=== PATIENT | male | born 1965 | race Hispanic/Latino ===

== ENCOUNTER 2018-07-15 17:20 | Inpatient (IN) | payer MEDICARE ==
[~2018-07-15] VITALS: Ht 182.9 cm; Wt 91.8 kg
[~2018-07-15 17:20] MED LIST: ALENDRONATE SOD70 MG PO; ASA81 MG PO; CALCITRIOL0.25 MCG PO; FINASTERIDE5 MG PO; FLUDROCORTISON0.1 MG PO; LOPERAMIDE2 M1 PO; MYCOPHENOLATE250 MG PO; PREDNISONE PO; Z STARLIX PO; Z.0.CARVEDILOL3.125 PO; Z.0.LISINOPRIL20 MG PO; Z.0.LOTREL 10-20 M1 PO; Z.0.PLAVIX75 MG PO; Z.0.RENVELA800 MG PO
[2018-07-15] MEDS ORDERED: SODIUM CHLORIDE 0.9% 500ML 500 ML IV ONE (18:15)
[2018-07-15 18:32] LABS: BASOPHILS % 0.2 % (0.0-1.0); HEMATOCRIT 40.3 % (38.2-49.6); HEMOGLOBIN 13.6 g/dL (14.0-18.0); LYMPHOCYTES # (AUTO) 0.5 (1.0-3.2); LYMPHOCYTES % 3.8 % (18.0-39.1); MEAN CORPUSCULAR HEMOGLOBIN 31.5 pg (28-32); MEAN CORPUSCULAR HGB CONC 33.7 g/dL (31-35); MEAN CORPUSCULAR VOLUME 93.3 fL (81-99); MONOCYTES # (AUTO) 0.9 (0.2-0.8); MONOCYTES % 7.2 % (4.4-11.3); NEUTROPHILS # (AUTO) 11.3 (2.1-6.9); NEUTROPHILS % 88.2 % (38.7-80.0); RED BLOOD COUNT 4.32 x10e6/uL (4.3-5.7); RED CELL DISTRIBUTION WIDTH 14.1 % (11.7-14.4)
[2018-07-15 18:35] LABS: PLATELET COUNT 92 x10e3/uL (140-360)
[2018-07-15 18:36] LABS: INR 1.33; PROTHROMBIN TIME 15.5 seconds (11.9-14.5)
[2018-07-15 18:37] LABS: PARTIAL THROMBOPLASTIN TIME 34.3 seconds (23.8-35.5)
[2018-07-15 18:47] LABS: BILIRUBIN,URINE NEGATIVE (NEGATIVE); CLARITY,URINE SL CLOUDY (CLEAR); COLOR,URINE YELLOW (YELLOW); KETONES,URINE NEGATIVE (NEGATIVE); LEUKOCYTE ESTERASE ,URINE TRACE (NEGATIVE); NITRITE,URINE NEGATIVE (NEGATIVE); PROTEIN,URINE DIPSTICK TRACE (NEGATIVE); URINE UROBILINOGEN 0.2 mg/dL (0.2 - 1)
[2018-07-15 18:53] LABS: ALBUMIN 3.4 g/dL (3.5-5.0); ALBUMIN/GLOBULIN RATIO 1.2 (0.8-2.0); ANION GAP 14.2 mmol/L (8-16); CALCIUM 9.8 mg/dL (8.4-10.2); CREATININE, SERUM 1.47 mg/dL (0.72-1.25); MAGNESIUM 1.2 MG/DL (1.3-2.1); POTASSIUM 4.2 mmol/L (3.5-5.1)
[2018-07-15 18:54] LABS: BACTERIA,URINE FEW /HPF
[2018-07-15 19:02] LABS: CREATINE KINASE MB 1.5 ng/mL (0-5.0)
[2018-07-15] MEDS ORDERED: CEFTRIAXONE SOD 1 GM VIAL IV ONE (19:59)
[2018-07-15] MEDS ORDERED: ACETAMINOPHEN 325 MG TAB PO ONE (23:00)
[2018-07-15] MEDS ORDERED: ZOFRAN ODT4 MG PO (23:28)
[2018-07-15] MEDS ORDERED: DOXYCYCLINE MON50 MG PO (23:28)
[2018-07-15] MEDS ORDERED: TACROLIMUS1 MG PO ×2 (23:28)
[2018-07-15] MEDS ORDERED: LANTUS 3ML100 UNITS/ SC (23:30)
[2018-07-15] MEDS ORDERED: APIDRA SOL100 UNIT/1 (23:30)
--- NOTE | 2018-07-15 23:58 | Diagnostic Imaging Report ---
EXAM: CT Abdomen and Pelvis WITHOUT contrast INDICATION: Renal stone COMPARISON: None. TECHNIQUE: Abdomen and pelvis were scanned utilizing a multidetector helical scanner from the lung base to the pubic symphysis without administration of IV contrast. Absence of intravenous contrast decreases sensitivity for detection of focal lesions and vascular pathology. Coronal and sagittal reformations were obtained. Stone protocol is performed. IV CONTRAST: None. ORAL CONTRAST: Water RADIATION DOSE: Total DLP: 593.94 mGy*cm Estimated effective dose: (DLP x 0.015 x size factor) mSv COMPLICATIONS: None FINDINGS: LINES and TUBES: None. LOWER THORAX: There is evidence of tree-in-bud nodularity predominantly involving the right lower and right middle lobe with miliary pattern. There is a left lower lobe round atelectasis associated with a pleural base low density oval masslike process measuring 9.9 x 4.4 x 8.1 cm best seen on series 3, image 31 and series 401, image 70 compatible with sequela of prior hemothorax or higher thorax. Multiple calcifications are noted peripherally. HEPATOBILIARY: No focal hepatic lesions. No biliary ductal dilation. GALLBLADDER: Cholecystectomy. SPLEEN: There is evidence of splenomegaly PANCREAS: No focal masses or ductal dilatation. ADRENALS: No adrenal nodules KIDNEYS/URETERS: No hydronephrosis. No cystic or solid mass lesions. No stones. Chronic renal atrophy compatible with medical renal disease. 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 GI TRACT: No abnormal distention, wall thickening, or evidence of bowel obstruction. Appendix is normal. PELVIC ORGANS/BLADDER: The urinary bladder is decompressed with thickened feliciano.. Correlate for urine production LYMPH NODES: No lymphadenopathy. VESSELS: There is severe atherosclerotic disease in the aorta and major arterial branches. PERITONEUM / RETROPERITONEUM: No free air or fluid. BONES: Unremarkable. SOFT TISSUES: Unremarkable. IMPRESSION: 1. No evidence of nephrolithiasis or hydronephrosis. 2. The calcifications noted in the [place] kidneys are all vascular in origin. 3. Mild splenomegaly. 4. 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 Isolation is recommended until active infection is excluded. Differential diagnosis may include atypical infections such as TB, or fungi. 5. Left lower lobe pleural base density compatible with sequela of prior empyema or hemothorax. Signed by: Dr. Eliazar Murillo M.D. on 07/15/2018 11:54 PM
[2018-07-16] VITALS (8 sets, daily range): BP systolic 81–177; BP diastolic 46–79
[2018-07-16] MEDS ORDERED: ONDANSETRON HCL INJ 2 MG/ML VIAL IV PRN (00:15)
[2018-07-16] MEDS ORDERED: DIPHENHYDRAMINE HCL INJ 50 MG/ML VIAL IV PRN (00:15)
[2018-07-16] MEDS ORDERED: VANCOMYCIN 1GM/NS 250 ML 250 ML IV SCH (00:15)
[2018-07-16] MEDS ORDERED: MORPHINE SULFATE INJ 4 MG/ML INJ IV PRN (00:15)
[2018-07-16] MEDS: SODIUM CHLORIDE 0.9% 1000ML 1,000 ML IV SCH ×2 (01:07→21:43)
[2018-07-16] MEDS: PIPER-TAZ 3.375 GM 50 ML IV SCH ×2 (01:07→06:06)
--- NOTE | 2018-07-16 01:30 | Diagnostic Imaging Report ---
EXAMINATION: CHEST SINGLE (PORTABLE) INDICATION: Fever COMPARISON: None FINDINGS: TUBES and LINES: None. LUNGS: Lungs are not well inflated. Bibasilar opacities are most likely atelectasis. There is no evidence of pneumonia or pulmonary edema. PLEURA: No pleural effusion or pneumothorax. HEART AND MEDIASTINUM: Cardiac size is mildly enlarged. The patient is status post CABG procedure. BONES AND SOFT TISSUES: No acute osseous lesion. Soft tissues are unremarkable. UPPER ABDOMEN: No free air under the diaphragm. IMPRESSION: Low lung volumes without evidence of confluent airspace disease. Signed by: Dr. Eliazar Murillo M.D. on 07/16/2018 1:26 AM
[2018-07-16] MEDS: ALBUTEROL SULF 0.083% NEB SOLN 3 ML NEB NEB SCH ×3 (06:00→19:44)
[2018-07-16] MEDS: IPRATROPIUM BROMIDE 0.02% 2.5 ML NEB NEB SCH ×3 (07:00→19:44)
[2018-07-16] MEDS ORDERED: ALENDRONATE SODIUM 70 MG TAB PO SCH (08:30)
[2018-07-16] MEDS ORDERED: NON-FORMULARY MEDICATION (Loperamide Hcl (Loperamide) 2 MG) PO SCH (08:30)
[2018-07-16] MEDS ORDERED: MYCOPHENOLATE MOFETIL 250 MG CAP PO SCH (08:30)
[2018-07-16] MEDS ORDERED: DEXTROSE 50% SYRINGE 50 ML IV PRN (08:45)
[2018-07-16] MEDS: ASPIRIN 81 MG ENTERIC COATED PO SCH (09:00)
[2018-07-16] MEDS: NIFEDIPINE CR 30 MG TAB PO SCH (09:00)
[2018-07-16] MEDS ORDERED: CARVEDILOL 12.5 MG TAB PO SCH (09:00)
[2018-07-16] MEDS: DOXYCYCLINE HYCLATE TABLET 100 MG TAB PO SCH ×2 (09:00→17:00)
[2018-07-16] MEDS ORDERED: BENAZEPRIL HCL 10 MG TAB PO SCH (09:00)
[2018-07-16] MEDS: AMLODIPINE BESYLATE 10 MG TAB PO SCH (09:00)
[2018-07-16] MEDS: CLOPIDOGREL BISULFATE 75 MG TAB PO SCH (09:00)
[2018-07-16] MEDS ORDERED: DOXYCYCLINE MONOHYDRATE 100 MG PO SCH (09:00)
[2018-07-16] MEDS ORDERED: CARVEDILOL 3.125 MG TAB PO SCH (09:00)
[2018-07-16] MEDS: CARVEDILOL 12.5 MG TAB PO SCH ×2 (09:00→17:00)
[2018-07-16] MEDS: FINASTERIDE 5 MG TAB PO SCH (09:00)
[2018-07-16] MEDS: PREDNISONE 5 MG TAB PO SCH (09:00)
[2018-07-16] MEDS: CALCITRIOL 0.25 MCG CAP PO SCH (09:00)
[2018-07-16] MEDS: FLUDROCORTISONE ACETATE 0.1 MG TAB PO SCH ×2 (09:00→17:00)
[2018-07-16] MEDS ORDERED: NON-FORMULARY MEDICATION (Amlodipine Besylate/Benazepril (Lotrel 10-20 Mg Capsule) 1 CAP) PO SCH (09:00)
[2018-07-16] MEDS ORDERED: LOPERAMIDE HCL 2 MG CAP PO PRN (09:00)
[2018-07-16] MEDS ORDERED: TACROLIMUS 1 MG CAP PO SCH ×2 (09:00→21:00)
[2018-07-16] MEDS ORDERED: CALCITRIOL 0.25 MCG CAP PO SCH (09:00)
[2018-07-16] MEDS: LISINOPRIL 20 MG TAB PO SCH (09:00)
[2018-07-16] MEDS ORDERED: PREDNISONE 5 MG PO SCH (09:00)
[2018-07-16] MEDS ORDERED: SEVELAMER CARBONATE 800 MG TAB PO SCH (09:00)
[2018-07-16] MEDS: ONDANSETRON HCL 4 MG ORAL DISINTEGRATING TAB PO SCH ×2 (09:00→17:00)
[2018-07-16] MEDS: SEVELAMER CARBONATE 800 MG TAB PO SCH ×3 (09:00→21:13)
[2018-07-16] MEDS: INSULIN REGULAR, HUMAN 100 UNIT/1 ML 3ML VIAL SQ SCH ×3 (11:30→21:00)
[2018-07-16] MEDS: NATEGLINIDE 120 MG TAB PO SCH ×2 (11:30→16:30)
[2018-07-16] MEDS ORDERED: MAGNESIUM SULFATE 2GM/50ML 50 ML IV ONE (12:15)
[2018-07-16] MEDS ORDERED: FENTANYL CITRATE/PF 100MCG/2 ML INJ ONE (14:43)
[2018-07-16] MEDS ORDERED: ROCURONIUM BROMIDE 10 MG/ML 5ML VIAL ONE (14:43)
[2018-07-16] MEDS ORDERED: SUCCINYLCHOLINE 200 MG/10 ML SYR ONE (14:43)
[2018-07-16] MEDS ORDERED: MIDAZOLAM HCL 2 MG/2 ML VIAL ONE (14:43)
[2018-07-16] MEDS ORDERED: PROPOFOL IV EMULSION 10 MG/ML 20 ML VIAL ONE (14:43)
[2018-07-16] MEDS ORDERED: LIDOCAINE HCL 2% LOCAL INJ 5 ML SDV VIAL INJ ONE (14:43)
[2018-07-16] MEDS: FAMOTIDINE 20 MG/2 ML VIAL IV SCH ×2 (14:51→17:00)
--- NOTE | 2018-07-16 15:36 | Consultation ---
DATE OF CONSULTATION: July 16, 2018 REASONS FOR CONSULTATION 1. Pneumonia. 2. UTI. 3. History of osteomyelitis of the foot. HISTORY OF PRESENT ILLNESS: This patient who is known to me from before is a 53-year-old gentleman, male, with history of diabetes mellitus, history of end-stage renal disease on hemodialysis at one point, now he is status post renal transplant. The patient apparently has been having osteomyelitis of his foot before. The patient has been on antibiotics since December. The patient comes here with urgency and frequency. The patient has been sick for the last few days. No prolonged fever or chills. The patient comes to emergency room where he was evaluated. He is on vancomycin and Zosyn. There was CT of abdomen and pelvis which showed that he does have some miliary lesions in the lungs. The patient is telling me 6 years ago, at [facility], he had some workup on his lungs for TB and that was negative. The patient was admitted for UTI but the CT was abnormal. The patient apparently had UTI back in June, was given Cipro without any improvement. He had some fever and chills back then. Patient is being admitted. PAST MEDICAL HISTORY: Diabetes mellitus, hypertension, renal disease status post transplant. SURGICAL HISTORY: CABG, left toe amputation. ALLERGIES: NKA. SOCIAL HISTORY: There is no smoking, drug abuse, alcohol use. FAMILY HISTORY: Hypertension, diabetes. REVIEW OF SYSTEMS HEENT: Negative. PULMONARY: Negative. CARDIAC: Negative. PHYSICAL EXAMINATION GENERAL: He is currently alert, oriented, does not seem to be in acute distress. VITALS: Stable. Currently afebrile. HEENT: He is normocephalic, does not appear icteric. NECK: Supple. CHEST: Clear. HEART: S1 and S2. No murmur. ABDOMEN: Soft. Positive bowel sounds. No tenderness. EXTREMITIES: No edema. LABORATORY DATA: Reviewed. Chart. IMPRESSIONS 1. Possible urinary tract infection. Obtain urine cultures. Treat with Zosyn since he failed Cipro, but will adjust for his kidney function at 2.25 q.8 hours. 2. Discontinue vancomycin. 3. History of diabetes mellitus. Continue with diet control in diabetes mellitus. 4. History of osteomyelitis. Treated. 5. Abnormal computed tomograph of the abdomen and pelvis. May be tuberculosis, doubtful. Will get a computed tomography of the chest. After that, further recommendations depending on the finding. 6. Status post renal transplant. 1. Chronic kidney disease. 2. Hypertension. Will follow. Job#: [id number]
--- NOTE | 2018-07-16 15:40 | Consultation ---
DATE OF CONSULTATION: July 16, 2018 PULMONARY CONSULTATION REASON FOR CONSULT: Abnormal CT abdomen, lower cuts showed miliary pattern, possibility of TB. HPI: Mr. Taylor is a 53-year-old male who has a history of lung transplant, presented to the emergency room with increased urinary frequency and dysuria with left flank pain, was admitted under Dr. Elam's service. Patient underwent a CT abdomen and pelvis, which showed evidence of atypical infection versus miliary infection. Patient is immunocompromised on Prograf and prednisone chronically, hence high-risk for any infection. REVIEW OF SYSTEMS GENERAL: Denies any fever, chills. HEAD: Denies any head trauma. ENT: Denies any earaches. CVS: Denies any chest pain. RESPIRATORY: Denies any shortness of breath or cough. GI: Denies any nausea or vomiting. The rest of the review of systems is negative except as in HPI. PAST MEDICAL HISTORY: Diabetes, CKD 3, peripheral arterial disease, status post kidney transplant, hypertension, diabetes. FAMILY AND SOCIAL HISTORY: He does not smoke, does not drink. PHYSICAL EXAMINATION VITAL SIGNS: Temperature 100, pulse of 120, blood pressure 115/53, T-max of 100.6. HEENT: Head atraumatic, normocephalic. Oral mucosa dry. Oropharynx clear. NECK: Supple. No JVD. CHEST: Clear to auscultation bilaterally. No wheezing. No crackles. HEART: S1, S2 audible. ABDOMEN: Soft, nontender. EXTREMITIES: No pedal edema. NEUROLOGIC: Awake and alert. No focal neurological deficit. LABORATORY DATA: White count of 12,000, hemoglobin 13.6, platelets 92. Chemistry: Sodium 136, potassium 4.2, chloride 103, BUN 33, creatinine 1.47. ASSESSMENT: Mr. Taylor is a 53-year-old male who has history of kidney transplant. Patient is on immunosuppressant medications. CT of the abdomen and pelvis was done, in which the lower cuts showed evidence of miliary pattern and TB or atypical mycobacterium infection is suspected. CURRENT PROBLEMS 1. Abnormal CT of the abdomen with lower cuts of the CT chest showing question of tuberculosis. 2. Status post kidney transplant. 3. Long-term use of immunosuppressant medications. 4. Hypertension. 5. Hyperlipidemia. PLAN: I will do a CT chest without contrast. Sputum for AFB has already been ordered. If the patient is unable to bring the phlegm, he will need a bronchoscopy and BAL. Once the CT of the chest is done, I will schedule him for bronchoscopy and BAL. Thank you for this consult. Job#: [id number] LPA
--- NOTE | 2018-07-16 16:27 | Diagnostic Imaging Report ---
EXAMINATION: CT scan of the chest without contrast. TECHNIQUE: Spiral CT images of the chest were performed from the lung apices to the level of the adrenal glands. No intravenous contrast was administered per physician's request. Coronal and sagittal reformatted images were obtained. COMPARISON: Portable chest 07/16/2018 CLINICAL HISTORY:Pneumonia, sepsis, UTI DISCUSSION: ABSENCE OF INTRAVENOUS CONTRAST DECREASES SENSITIVITY FOR DETECTION OF FOCAL LESIONS AND VASCULAR PATHOLOGY. LINES/TUBES: None. LUNGS AND AIRWAYS: Tree-in-bud opacities are noted in the anterolateral right upper lobe (series 3, image 32), right lower lobe (series 3, image 61). Atelectatic changes in the left lower lobe (series 3, image 16), with associated mild bronchiectasis (series 3, image 80), which converge on the lenticular shaped subpleural density described below. Associated posterior displacement of the left major fissure Calcified granuloma in the superior segment of the right lower lobe (series 3, image 43). No focal consolidation or pulmonary nodules. Airways are clear, without bronchial lesions. PLEURA: No pneumothorax. Approximately 10.9 x 4.7 x 9.4 cm soft tissue density lenticular shaped subpleural density in the left lower lung, with associated linear and scattered dystrophic calcifications (series 2, image 96). HEART AND MEDIASTINUM: Thyroid is unremarkable. Mild cardiomegaly. Extensive atherosclerotic calcification of the coronary arteries, thoracic aorta, aortic valve sent to lesser degree mitral annulus. Aorta is nonaneurysmal. Main pulmonary artery measures 3.0 cm. LYMPH NODES: There is no mediastinal, hilar or axillary lymphadenopathy. ABDOMEN: Limited unenhanced views of the upper abdomen show no abnormality within the visualized liver, spleen and bowel. The adrenal glands are not imaged. Extensive atherosclerotic calcification of the aortic branches BONES AND SOFT TISSUES: No aggressive lytic lesions. Multilevel degenerative disc changes in the thoracic spine. Midline sternotomy wires. IMPRESSION: 1. Tree-in-bud opacities in the anterolateral right upper lobe and right lower lobe, suggesting endobronchial spread of infection (including mycobacterial disease). No consolidation. 2. Left lower lung pleural-based density with associated atelectatic changes in the left lower lobe and mild bronchiectasis, with converging airways and vessels, are suggestive of round atelectasis and/or sequela of prior empyema or effusion. Further evaluation is limited by the lack of intravenous contrast. Signed by: Dr. Isaiah Narvaez M.D. on 07/16/2018 4:24 PM
--- NOTE | 2018-07-16 17:03 | Consultation ---
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 He is admitted with pneumonia, currently sleepy, arousable, lying supine, no apparent distress. Denies nausea, vomiting, or shortness of breath. MEDICATIONS: He has been started on vancomycin 1 gram IV q.12 per protocol, receiving normal saline 75 mL an hour, also on piperacillin-tazobactam, albuterol-Atrovent nebulizer. He is on Fosamax 70 mg p.o. daily, amlodipine 10 mg daily, aspirin 81 mg daily, Atrovent nebulizer. He is on benazepril 20 mg daily, calcitriol 0.25 mg p.o. daily, Coreg 12.5 mg p.o. b.i.d. He is on Plavix 75 mg p.o. daily, doxycycline 100 mg p.o. b.i.d. He is on fludrocortisone 0.1 mg p.o. b.i.d. He is on finasteride 5 mg p.o. daily. He is on Prinivil, 20 mg of lisinopril everyday. He is on loperamide 2 mg p.o. q.6, mycophenolate mofetil 500 mg q.12. which I am going to adjust. ALLERGIES: NO APPARENT DRUG ALLERGIES. SOCIAL HISTORY: Does not smoke or drink. FAMILY HISTORY: Significant for hypertension. Workup included chest x-ray, shows low lung volumes without evidence of confluent airspace disease. Had an abdominal CT pelvis. There is a nodularity noted in the lower thorax, pulmonary critical care is on the case. We are suspecting possible atypical infection. PHYSICAL EXAMINATION GENERAL: Patient found to be awake, alert, lying supine, no apparent distress. VITALS: Blood pressure 115/53, pulse rate 120, afebrile, and respiratory rate 20. HEAD AND NECK: Cornea clear. Oral mucosa dry. LUNGS: Scattered rhonchi. No rales. HEART: S1 and S2 audible. ABDOMEN: Soft and nontender. LOWER EXTREMITY: No edema. LABORATORY TESTS: Shows white count 12.8, hemoglobin 13.6. Sodium 136, potassium 4.2, chloride 103, bicarbonate 23, BUN 33, creatinine 1.4, magnesium level is 1.2, total bili 1.4, and total protein 6.3. IMPRESSION AND PLAN: Cadaveric renal transplant with chronic rejection, hypomagnesemia. Volume status appears stable. I have adjusted his tacrolimus and CellCept doses. I have discontinued benazepril. Continue with IV fluids. Recommend to adjust the dose of vancomycin, defer to infectious disease. I will monitor patient's kidney function, urine output, and electrolytes with you. Job#: [id number] LPA
[2018-07-16] MEDS: MYCOPHENOLATE MOFETIL 250 MG CAP PO SCH (20:44)
[2018-07-16] MEDS: TACROLIMUS 1 MG CAP PO SCH ×2 (20:44→21:00)
[2018-07-16] MEDS ORDERED: INSULIN DETEMIR 100 UNIT/ML PEN SQ SCH (21:00)
[2018-07-16] MEDS: INSULIN DETEMIR 100 UNIT/ML PEN SQ SCH (21:14)
[2018-07-16] MEDS: PIPERACILLIN/TAZO 2.25 GM 50 ML IV SCH (21:43)
[2018-07-16] MEDS ORDERED: ACETAMINOPHEN 325 MG TAB PO PRN (22:00)
[2018-07-16] MEDS: ACETAMINOPHEN 325 MG TAB PO PRN (22:17)
[2018-07-17] VITALS: BP 97/50
[2018-07-17] MEDS: IPRATROPIUM BROMIDE 0.02% 2.5 ML NEB NEB SCH ×4 (01:00→19:19)
[2018-07-17 04:00] VITALS: BP 100/49
[2018-07-17] MEDS: PIPERACILLIN/TAZO 2.25 GM 50 ML IV SCH ×3 (05:36→21:11)
[2018-07-17 05:58] LABS: BASOPHILS % 0.3 % (0.0-1.0); EOSINOPHILS # (AUTO) 0.1 (0.0-0.4); HEMATOCRIT 33.7 % (38.2-49.6); HEMOGLOBIN 11.3 g/dL (14.0-18.0); LYMPHOCYTES # (AUTO) 0.5 (1.0-3.2); LYMPHOCYTES % 8.1 % (18.0-39.1); MEAN CORPUSCULAR HGB CONC 33.5 g/dL (31-35); MEAN CORPUSCULAR VOLUME 92.3 fL (81-99); MONOCYTES # (AUTO) 0.6 (0.2-0.8); MONOCYTES % 10.6 % (4.4-11.3); NEUTROPHILS # (AUTO) 4.8 (2.1-6.9); NEUTROPHILS % 78.7 % (38.7-80.0); PLATELET COUNT 77 x10e3/uL (140-360); RED BLOOD COUNT 3.65 x10e6/uL (4.3-5.7)
[2018-07-17] MEDS: ALBUTEROL SULF 0.083% NEB SOLN 3 ML NEB NEB SCH ×3 (06:00→19:19)
[2018-07-17 06:26] LABS: ANION GAP 9.2 mmol/L (8-16); CREATININE, SERUM 1.64 mg/dL (0.72-1.25); POTASSIUM 3.2 mmol/L (3.5-5.1)
[2018-07-17 07:30] VITALS: BP 98/56
[2018-07-17] MEDS: TACROLIMUS 1 MG CAP PO SCH ×2 (07:30→21:10)
[2018-07-17] MEDS: NATEGLINIDE 120 MG TAB PO SCH ×3 (07:30→16:30)
[2018-07-17] MEDS: INSULIN REGULAR, HUMAN 100 UNIT/1 ML 3ML VIAL SQ SCH ×4 (07:30→21:11)
[2018-07-17] MEDS: MYCOPHENOLATE MOFETIL 250 MG CAP PO SCH ×2 (08:30→21:10)
[2018-07-17] MEDS: ONDANSETRON HCL 4 MG ORAL DISINTEGRATING TAB PO SCH ×2 (09:00→17:40)
[2018-07-17] MEDS: AMLODIPINE BESYLATE 10 MG TAB PO SCH (09:00)
[2018-07-17] MEDS: DOXYCYCLINE HYCLATE TABLET 100 MG TAB PO SCH ×2 (09:00→17:40)
[2018-07-17] MEDS: NIFEDIPINE CR 30 MG TAB PO SCH (09:00)
[2018-07-17] MEDS: LISINOPRIL 20 MG TAB PO SCH (09:00)
[2018-07-17] MEDS: SEVELAMER CARBONATE 800 MG TAB PO SCH ×3 (09:00→21:10)
[2018-07-17] MEDS: CARVEDILOL 12.5 MG TAB PO SCH ×2 (09:00→17:00)
[2018-07-17] MEDS: FLUDROCORTISONE ACETATE 0.1 MG TAB PO SCH ×2 (09:00→17:40)
[2018-07-17] MEDS: FAMOTIDINE 20 MG/2 ML VIAL IV SCH ×2 (09:14→17:40)
[2018-07-17] MEDS ORDERED: POTASSIUM CHLORIDE 10MEQ/100ML 100 ML IV ONE (10:00)
[2018-07-17 11:48] VITALS: BP 94/52
[2018-07-17] MEDS ORDERED: LIDOCAINE HCL 2% 30 ML TUBE ONE (12:49)
[2018-07-17] MEDS ORDERED: LIDOCAINE HCL 4% 50 ML BTL ONE (12:49)
[2018-07-17] MEDS ORDERED: EPINEPHRINE HCL INJ 1 MG/ML AMP ONE (12:49)
[2018-07-17] MEDS ORDERED: OXYMETAZOLINE HCL 0.05% NAS 1 SPRAY BTL ONE (12:49)
--- NOTE | 2018-07-17 15:37 | Operative Report ---
DATE OF PROCEDURE: July 17, 2018 PROCEDURE PERFORMED: Bronchoscopy. PREPROCEDURE DIAGNOSIS: Abnormal CT chest. POSTPROCEDURE DIAGNOSIS: Normal endobronchial airways. PROCEDURE IN DETAIL: The bronchoscope was advanced through the ET tube. Both lungs were examined to the segmental level. No endobronchial lesion was seen on either side. The right upper lobe, middle lobe and lower lobe were examined. No endobronchial lesion was seen. Left upper lobe lingula and lower lobe were examined. No endobronchial lesion was seen. BAL was done from the right middle lobe. It was sent for AFB and culture, fungus, Gram stain culture, mycoplasma and legionella. Job#: [id number]
[2018-07-17] MEDS: CLOPIDOGREL BISULFATE 75 MG TAB PO SCH (15:51)
[2018-07-17] MEDS: CALCITRIOL 0.25 MCG CAP PO SCH (15:51)
[2018-07-17] MEDS: ASPIRIN 81 MG ENTERIC COATED PO SCH (15:51)
[2018-07-17] MEDS: PREDNISONE 5 MG TAB PO SCH (15:51)
[2018-07-17] MEDS: FINASTERIDE 5 MG TAB PO SCH (15:52)
[2018-07-17 16:09] VITALS: BP 100/54
[2018-07-17] MEDS ORDERED: POTASSIUM CHLORIDE 20MEQ/100ML 200 ML IV ONE (16:45)
[2018-07-17] MEDS: SODIUM BICARBONATE 650 MG TAB PO SCH (17:40)
[2018-07-17] MEDS: ACETAMINOPHEN 325 MG TAB PO PRN (18:15)
[2018-07-17 19:47] VITALS: BP 160/74
[2018-07-17] MEDS ORDERED: SODIUM CHLORIDE 0.9% 250ML 250 ML ONE (20:39)
[2018-07-17] MEDS: CLONIDINE HCL 0.2 MG TAB PO PRN (21:10)
[2018-07-17] MEDS: INSULIN DETEMIR 100 UNIT/ML PEN SQ SCH (21:11)
[2018-07-18] VITALS (9 sets, daily range): BP systolic 129–183; BP diastolic 49–91
[2018-07-18] MEDS: IPRATROPIUM BROMIDE 0.02% 2.5 ML NEB NEB SCH ×4 (00:45→19:25)
[2018-07-18] MEDS: PIPERACILLIN/TAZO 2.25 GM 50 ML IV SCH ×5 (05:21→21:18)
--- NOTE | 2018-07-18 05:57 | Progress Note ---
DATE OF CONSULTATION: July 18, 2018 Patient had no new complaints overnight. Feels a little bit better. He is status post bronch with BAL yesterday. PHYSICAL EXAMINATION VITALS: His temperature 96.1, pulse 73, blood pressure 135/61, sats 93%. GENERAL: In no apparent distress. LUNGS: Decreased breath sounds bilaterally. CARDIOVASCULAR: Regular rate/rhythm. ABDOMEN: Good bowel sounds. Soft, nontender. EXTREMITIES: No clubbing, cyanosis. NEUROLOGIC: Nonfocal. ASSESSMENT AND PLAN 1. Pneumonia. Continue with current care. Awaiting culture data. 2. Urinary tract infection. Continue with the antibiotics per Dr. Ervin. 3. Chronic kidney disease, stage 3, status post kidney transplant. Continue current care per renal. 4. Diabetes. Continue with current medications. Will monitor. 5. Hypokalemia, replaced. Will monitor. Please see hospital chart for full details. Job#: [id number] CQ
[2018-07-18] MEDS: TACROLIMUS 1 MG CAP PO SCH ×2 (07:30→21:18)
[2018-07-18] MEDS: NATEGLINIDE 120 MG TAB PO SCH ×3 (07:30→17:27)
[2018-07-18] MEDS: INSULIN REGULAR, HUMAN 100 UNIT/1 ML 3ML VIAL SQ SCH ×4 (07:30→21:00)
[2018-07-18] MEDS: ALBUTEROL SULF 0.083% NEB SOLN 3 ML NEB NEB SCH ×3 (08:00→19:25)
[2018-07-18] MEDS: MYCOPHENOLATE MOFETIL 250 MG CAP PO SCH ×2 (08:30→21:18)
[2018-07-18] MEDS: FAMOTIDINE 20 MG/2 ML VIAL IV SCH ×2 (09:00→17:28)
[2018-07-18] MEDS: SEVELAMER CARBONATE 800 MG TAB PO SCH ×3 (09:00→21:18)
[2018-07-18] MEDS: CARVEDILOL 12.5 MG TAB PO SCH ×2 (09:00→17:00)
[2018-07-18] MEDS: DOXYCYCLINE HYCLATE TABLET 100 MG TAB PO SCH ×2 (09:00→17:28)
[2018-07-18] MEDS: NIFEDIPINE CR 30 MG TAB PO SCH (09:00)
[2018-07-18] MEDS: AMLODIPINE BESYLATE 10 MG TAB PO SCH (09:00)
[2018-07-18] MEDS: SODIUM BICARBONATE 650 MG TAB PO SCH ×2 (09:00→17:28)
[2018-07-18] MEDS: FLUDROCORTISONE ACETATE 0.1 MG TAB PO SCH ×2 (09:00→17:28)
[2018-07-18] MEDS: ONDANSETRON HCL 4 MG ORAL DISINTEGRATING TAB PO SCH ×2 (09:00→17:28)
--- NOTE | 2018-07-18 14:15 | Diagnostic Imaging Report ---
EXAM: Bilateral chest ultrasound and IR consult for drainage/biopsy INDICATION: Query left sided pleural effusion COMPARISON: CT Chest 07/16/18 TECHNIQUE: Focused ultrasound was performed of the bilateral chest to evaluate for presence of pleural effusion. FINDINGS: Focused ultrasound was performed of the bilateral chest, which demonstrated no evidence of pleural effusion. IMPRESSION: No sonographic evidence of pleural effusions bilaterally PLAN: Note is made of IR consult from referring team requesting drainage of biopsy of opacity noted in the left lower lobe on prior noncontrast CT. Given absence of pleural effusion, no drainage can be performed. Furthermore, prior CT is suggestive of an area of atelectasis / sequela of prior pleural effusion (complex pleural effusion was noted on abdominal CT report from 06/30/2010), rather than mass. Therefore, no lung biopsy was performed at this time. A contrast enhanced CT may be considered for further evaluation. Signed by: Dr. Rima Purvis MD on 07/18/2018 2:12 PM
[2018-07-18] MEDS: PREDNISONE 5 MG TAB PO SCH (17:27)
[2018-07-18] MEDS: FINASTERIDE 5 MG TAB PO SCH (17:27)
[2018-07-18] MEDS: ASPIRIN 81 MG ENTERIC COATED PO SCH (17:27)
[2018-07-18] MEDS: CLOPIDOGREL BISULFATE 75 MG TAB PO SCH (17:27)
[2018-07-18] MEDS: CALCITRIOL 0.25 MCG CAP PO SCH (17:27)
[2018-07-18] MEDS: INSULIN DETEMIR 100 UNIT/ML PEN SQ SCH (21:18)
[2018-07-18] MEDS: CLONIDINE HCL 0.2 MG TAB PO PRN (23:00)
[2018-07-19] VITALS (8 sets, daily range): BP systolic 136–191; BP diastolic 71–98
[2018-07-19] MEDS: IPRATROPIUM BROMIDE 0.02% 2.5 ML NEB NEB SCH ×4 (01:25→19:40)
[2018-07-19] MEDS: PIPERACILLIN/TAZO 2.25 GM 50 ML IV SCH ×3 (05:10→22:01)
[2018-07-19 06:20] LABS: ALANINE AMINOTRANSFERASE 16 IU/L (0-55); ALKALINE PHOSPHATASE 79 IU/L (40-150); ANION GAP 13.1 mmol/L (8-16); BLOOD UREA NITROGEN 14 mg/dL (7-26); BUN/CREATININE RATIO 12 (6-25); CALCIUM 9.9 mg/dL (8.4-10.2); CARBON DIOXIDE 22 mmol/L (22-29); CHLORIDE 107 mmol/L (98-107); CREATININE, SERUM 1.19 mg/dL (0.72-1.25); EST GLOMERULAR FILTRATION RATE > 60 ML/MIN (60-); GLUCOSE 184 mg/dL (74-118); MAGNESIUM 1.4 MG/DL (1.3-2.1); POTASSIUM 4.1 mmol/L (3.5-5.1); SODIUM 138 mmol/L (136-145)
[2018-07-19] MEDS: ALBUTEROL SULF 0.083% NEB SOLN 3 ML NEB NEB SCH ×3 (06:45→19:40)
[2018-07-19 06:49] LABS: BASOPHILS % 0.3 % (0.0-1.0); EOSINOPHILS # (AUTO) 0.1 (0.0-0.4); EOSINOPHILS % 2.3 % (0.0-6.0); HEMATOCRIT 36.9 % (38.2-49.6); HEMOGLOBIN 12.5 g/dL (14.0-18.0); LYMPHOCYTES # (AUTO) 0.4 (1.0-3.2); LYMPHOCYTES % 13.7 % (18.0-39.1); MEAN CORPUSCULAR HEMOGLOBIN 31.2 pg (28-32); MEAN CORPUSCULAR HGB CONC 33.9 g/dL (31-35); MONOCYTES # (AUTO) 0.5 (0.2-0.8); MONOCYTES % 16.4 % (4.4-11.3); PLATELET COUNT 112 x10e3/uL (140-360); RED BLOOD COUNT 4.01 x10e6/uL (4.3-5.7); RED CELL DISTRIBUTION WIDTH 13.6 % (11.7-14.4)
[2018-07-19] MEDS: INSULIN REGULAR, HUMAN 100 UNIT/1 ML 3ML VIAL SQ SCH ×4 (07:30→21:00)
[2018-07-19] MEDS: NATEGLINIDE 120 MG TAB PO SCH (07:30)
[2018-07-19] MEDS: TACROLIMUS 0.5 MG CAP PO SCH (08:30)
[2018-07-19] MEDS: MYCOPHENOLATE MOFETIL 250 MG CAP PO SCH ×2 (08:30→21:59)
[2018-07-19] MEDS: DOXYCYCLINE HYCLATE TABLET 100 MG TAB PO SCH ×2 (09:00→17:00)
[2018-07-19] MEDS: FAMOTIDINE 20 MG/2 ML VIAL IV SCH ×2 (09:00→17:00)
[2018-07-19] MEDS: NIFEDIPINE CR 30 MG TAB PO SCH (09:00)
[2018-07-19] MEDS: FINASTERIDE 5 MG TAB PO SCH (09:00)
[2018-07-19] MEDS: CARVEDILOL 12.5 MG TAB PO SCH ×2 (09:00→17:00)
[2018-07-19] MEDS: FLUDROCORTISONE ACETATE 0.1 MG TAB PO SCH ×2 (09:00→17:00)
[2018-07-19] MEDS: ONDANSETRON HCL 4 MG ORAL DISINTEGRATING TAB PO SCH ×2 (09:00→17:00)
[2018-07-19] MEDS: PREDNISONE 5 MG TAB PO SCH (09:00)
[2018-07-19] MEDS: CALCITRIOL 0.25 MCG CAP PO SCH (10:00)
[2018-07-19] MEDS: CLOPIDOGREL BISULFATE 75 MG TAB PO SCH (10:00)
[2018-07-19] MEDS: ASPIRIN 81 MG ENTERIC COATED PO SCH (10:00)
[2018-07-19] MEDS: AMLODIPINE BESYLATE 10 MG TAB PO SCH (10:00)
[2018-07-19] MEDS: SEVELAMER CARBONATE 800 MG TAB PO SCH ×3 (10:00→21:59)
[2018-07-19] MEDS: SODIUM BICARBONATE 650 MG TAB PO SCH ×2 (10:00→17:00)
[2018-07-19] MEDS: CLONIDINE HCL 0.2 MG TAB PO PRN (12:10)
[2018-07-19] MEDS: TACROLIMUS 1 MG CAP PO SCH (21:59)
[2018-07-19] MEDS: INSULIN DETEMIR 100 UNIT/ML PEN SQ SCH (22:01)
[2018-07-20] VITALS: BP 117/56
[2018-07-20] MEDS: IPRATROPIUM BROMIDE 0.02% 2.5 ML NEB NEB SCH ×4 (02:35→19:28)
[2018-07-20 04:00] VITALS: BP 144/72
[2018-07-20] MEDS: ALBUTEROL SULF 0.083% NEB SOLN 3 ML NEB NEB SCH ×4 (06:00→19:28)
[2018-07-20] MEDS: PIPERACILLIN/TAZO 2.25 GM 50 ML IV SCH ×3 (06:40→22:10)
[2018-07-20 08:00] VITALS: BP 128/60
[2018-07-20] MEDS: SEVELAMER CARBONATE 800 MG TAB PO SCH ×3 (08:04→20:11)
[2018-07-20] MEDS: ASPIRIN 81 MG ENTERIC COATED PO SCH (09:00)
[2018-07-20] MEDS: CARVEDILOL 12.5 MG TAB PO SCH ×2 (09:00→17:41)
[2018-07-20] MEDS: FLUDROCORTISONE ACETATE 0.1 MG TAB PO SCH ×2 (09:00→17:41)
[2018-07-20] MEDS: AMLODIPINE BESYLATE 10 MG TAB PO SCH (09:00)
[2018-07-20] MEDS: NIFEDIPINE CR 30 MG TAB PO SCH (09:00)
[2018-07-20] MEDS: TACROLIMUS 0.5 MG CAP PO SCH (09:02)
[2018-07-20] MEDS: INSULIN REGULAR, HUMAN 100 UNIT/1 ML 3ML VIAL SQ SCH ×4 (09:03→20:13)
[2018-07-20] MEDS: FAMOTIDINE 20 MG/2 ML VIAL IV SCH ×2 (09:03→17:39)
[2018-07-20] MEDS: MYCOPHENOLATE MOFETIL 250 MG CAP PO SCH ×2 (09:03→20:11)
[2018-07-20] MEDS: FINASTERIDE 5 MG TAB PO SCH (09:05)
[2018-07-20] MEDS: CLOPIDOGREL BISULFATE 75 MG TAB PO SCH (09:05)
[2018-07-20] MEDS: DOXYCYCLINE HYCLATE TABLET 100 MG TAB PO SCH ×2 (09:05→17:41)
[2018-07-20] MEDS: CALCITRIOL 0.25 MCG CAP PO SCH (09:05)
[2018-07-20] MEDS: ONDANSETRON HCL 4 MG ORAL DISINTEGRATING TAB PO SCH ×2 (09:05→17:41)
[2018-07-20] MEDS: SODIUM BICARBONATE 650 MG TAB PO SCH ×2 (09:05→17:41)
[2018-07-20] MEDS: PREDNISONE 5 MG TAB PO SCH (09:05)
[2018-07-20 12:00] VITALS: BP 145/70
[2018-07-20 17:01] VITALS: BP 164/88
[2018-07-20 20:00] VITALS: BP 171/80
[2018-07-20] MEDS: TACROLIMUS 1 MG CAP PO SCH (20:11)
[2018-07-20] MEDS: INSULIN DETEMIR 100 UNIT/ML PEN SQ SCH (20:12)
[2018-07-20] MEDS: CLONIDINE HCL 0.2 MG TAB PO PRN (20:18)
[2018-07-21] VITALS (8 sets, daily range): BP systolic 132–192; BP diastolic 64–100
[2018-07-21] MEDS: IPRATROPIUM BROMIDE 0.02% 2.5 ML NEB NEB SCH ×4 (00:02→19:17)
[2018-07-21] MEDS: PIPERACILLIN/TAZO 2.25 GM 50 ML IV SCH ×3 (06:13→22:00)
[2018-07-21] MEDS: ALBUTEROL SULF 0.083% NEB SOLN 3 ML NEB NEB SCH ×3 (06:41→19:17)
[2018-07-21 06:54] LABS: BASOPHILS % 0.5 % (0.0-1.0); EOSINOPHILS # (AUTO) 0.1 (0.0-0.4); EOSINOPHILS % 3.4 % (0.0-6.0); HEMATOCRIT 34.1 % (38.2-49.6); HEMOGLOBIN 11.6 g/dL (14.0-18.0); LYMPHOCYTES # (AUTO) 0.9 (1.0-3.2); LYMPHOCYTES % 22.9 % (18.0-39.1); MEAN CORPUSCULAR HEMOGLOBIN 31.3 pg (28-32); MEAN CORPUSCULAR VOLUME 91.9 fL (81-99); MONOCYTES # (AUTO) 0.5 (0.2-0.8); MONOCYTES % 14.1 % (4.4-11.3); NEUTROPHILS # (AUTO) 2.3 (2.1-6.9); NEUTROPHILS % 58.6 % (38.7-80.0); PLATELET COUNT 115 x10e3/uL (140-360); RED BLOOD COUNT 3.71 x10e6/uL (4.3-5.7); RED CELL DISTRIBUTION WIDTH 13.3 % (11.7-14.4)
[2018-07-21 07:11] LABS: ALANINE AMINOTRANSFERASE 14 IU/L (0-55); ALBUMIN 2.8 g/dL (3.5-5.0); ALBUMIN/GLOBULIN RATIO 1.1 (0.8-2.0); ALKALINE PHOSPHATASE 62 IU/L (40-150); ANION GAP 12.7 mmol/L (8-16); BLOOD UREA NITROGEN 18 mg/dL (7-26); BUN/CREATININE RATIO 17 (6-25); CALCIUM 9.5 mg/dL (8.4-10.2); CARBON DIOXIDE 24 mmol/L (22-29); CHLORIDE 101 mmol/L (98-107); CREATININE, SERUM 1.07 mg/dL (0.72-1.25); EST GLOMERULAR FILTRATION RATE > 60 ML/MIN (60-); GLUCOSE 228 mg/dL (74-118); POTASSIUM 3.7 mmol/L (3.5-5.1); SODIUM 134 mmol/L (136-145)
[2018-07-21] MEDS: TACROLIMUS 0.5 MG CAP PO SCH (08:05)
[2018-07-21] MEDS: INSULIN REGULAR, HUMAN 100 UNIT/1 ML 3ML VIAL SQ SCH ×4 (08:05→21:00)
[2018-07-21] MEDS: CARVEDILOL 12.5 MG TAB PO SCH ×2 (08:06→17:10)
[2018-07-21] MEDS: ASPIRIN 81 MG ENTERIC COATED PO SCH (08:06)
[2018-07-21] MEDS: MYCOPHENOLATE MOFETIL 250 MG CAP PO SCH ×2 (08:06→22:00)
[2018-07-21] MEDS: FAMOTIDINE 20 MG/2 ML VIAL IV SCH ×2 (08:06→17:10)
[2018-07-21] MEDS: NIFEDIPINE CR 30 MG TAB PO SCH (08:10)
[2018-07-21] MEDS: AMLODIPINE BESYLATE 10 MG TAB PO SCH (08:10)
[2018-07-21] MEDS: CLOPIDOGREL BISULFATE 75 MG TAB PO SCH (08:10)
[2018-07-21] MEDS: FLUDROCORTISONE ACETATE 0.1 MG TAB PO SCH ×2 (08:10→17:10)
[2018-07-21] MEDS: PREDNISONE 5 MG TAB PO SCH (08:10)
[2018-07-21] MEDS: FINASTERIDE 5 MG TAB PO SCH (08:11)
[2018-07-21] MEDS: SEVELAMER CARBONATE 800 MG TAB PO SCH ×3 (08:11→21:00)
[2018-07-21] MEDS: DOXYCYCLINE HYCLATE TABLET 100 MG TAB PO SCH ×2 (08:11→17:10)
[2018-07-21] MEDS: SODIUM BICARBONATE 650 MG TAB PO SCH ×2 (08:11→17:10)
[2018-07-21] MEDS: CALCITRIOL 0.25 MCG CAP PO SCH (08:11)
[2018-07-21] MEDS: ONDANSETRON HCL 4 MG ORAL DISINTEGRATING TAB PO SCH ×2 (08:11→17:10)
[2018-07-21] MEDS ORDERED: MECLIZINE HCL 12.5 MG TAB PO PRN (11:30)
[2018-07-21] MEDS: TACROLIMUS 1 MG CAP PO SCH (22:00)
[2018-07-21] MEDS: INSULIN DETEMIR 100 UNIT/ML PEN SQ SCH (22:14)
[2018-07-22] VITALS (7 sets, daily range): BP systolic 137–168; BP diastolic 65–81
[2018-07-22] MEDS: IPRATROPIUM BROMIDE 0.02% 2.5 ML NEB NEB SCH ×4 (01:22→19:20)
[2018-07-22] MEDS ORDERED: SODIUM CHLORIDE 0.9% 250ML 250 ML ONE (06:08)
[2018-07-22] MEDS: PIPERACILLIN/TAZO 2.25 GM 50 ML IV SCH ×3 (07:00→22:38)
[2018-07-22] MEDS: ALBUTEROL SULF 0.083% NEB SOLN 3 ML NEB NEB SCH ×3 (07:29→19:20)
[2018-07-22] MEDS: INSULIN REGULAR, HUMAN 100 UNIT/1 ML 3ML VIAL SQ SCH ×4 (07:30→21:00)
[2018-07-22] MEDS: TACROLIMUS 0.5 MG CAP PO SCH (07:58)
[2018-07-22] MEDS: MYCOPHENOLATE MOFETIL 250 MG CAP PO SCH ×2 (07:58→22:37)
[2018-07-22] MEDS ORDERED: ALENDRONATE SODIUM 70 MG TAB PO SCH (08:48)
[2018-07-22] MEDS: AMLODIPINE BESYLATE 10 MG TAB PO SCH (09:00)
[2018-07-22] MEDS: ASPIRIN 81 MG ENTERIC COATED PO SCH (09:26)
[2018-07-22] MEDS: CARVEDILOL 12.5 MG TAB PO SCH ×2 (09:26→17:06)
[2018-07-22] MEDS: FAMOTIDINE 20 MG/2 ML VIAL IV SCH ×2 (09:26→17:05)
[2018-07-22] MEDS: CLOPIDOGREL BISULFATE 75 MG TAB PO SCH (09:27)
[2018-07-22] MEDS: CALCITRIOL 0.25 MCG CAP PO SCH (09:27)
[2018-07-22] MEDS: ONDANSETRON HCL 4 MG ORAL DISINTEGRATING TAB PO SCH ×2 (09:27→17:06)
[2018-07-22] MEDS: SODIUM BICARBONATE 650 MG TAB PO SCH ×2 (09:27→17:06)
[2018-07-22] MEDS: FINASTERIDE 5 MG TAB PO SCH (09:27)
[2018-07-22] MEDS: NIFEDIPINE CR 30 MG TAB PO SCH (09:27)
[2018-07-22] MEDS: SEVELAMER CARBONATE 800 MG TAB PO SCH ×3 (09:27→22:37)
[2018-07-22] MEDS: FLUDROCORTISONE ACETATE 0.1 MG TAB PO SCH ×2 (09:27→17:06)
[2018-07-22] MEDS: DOXYCYCLINE HYCLATE TABLET 100 MG TAB PO SCH ×2 (09:27→17:06)
[2018-07-22] MEDS: PREDNISONE 5 MG TAB PO SCH (09:27)
[2018-07-22] MEDS ORDERED: FUROSEMIDE INJ 10 MG/ML 2 ML VIAL IV NR (19:45)
[2018-07-22] MEDS: TACROLIMUS 1 MG CAP PO SCH (22:37)
[2018-07-23] VITALS (7 sets, daily range): BP systolic 130–178; BP diastolic 64–87
[2018-07-23] MEDS ORDERED: FUROSEMIDE INJ 10 MG/ML 2 ML VIAL IV ONE (00:15)
[2018-07-23] MEDS: INSULIN DETEMIR 100 UNIT/ML PEN SQ SCH ×2 (00:19→21:00)
[2018-07-23] MEDS: IPRATROPIUM BROMIDE 0.02% 2.5 ML NEB NEB SCH ×4 (01:10→19:20)
[2018-07-23] MEDS: PIPERACILLIN/TAZO 2.25 GM 50 ML IV SCH ×3 (05:47→21:30)
[2018-07-23] MEDS: ALBUTEROL SULF 0.083% NEB SOLN 3 ML NEB NEB SCH ×3 (06:00→19:20)
[2018-07-23] MEDS: INSULIN REGULAR, HUMAN 100 UNIT/1 ML 3ML VIAL SQ SCH ×4 (07:30→21:00)
[2018-07-23] MEDS: TACROLIMUS 0.5 MG CAP PO SCH (07:30)
[2018-07-23] MEDS: AMLODIPINE BESYLATE 10 MG TAB PO SCH (09:00)
[2018-07-23] MEDS: CARVEDILOL 12.5 MG TAB PO SCH ×2 (09:00→17:59)
[2018-07-23] MEDS: FLUDROCORTISONE ACETATE 0.1 MG TAB PO SCH ×2 (09:46→17:59)
[2018-07-23] MEDS: FAMOTIDINE 20 MG/2 ML VIAL IV SCH ×2 (09:46→17:59)
[2018-07-23] MEDS: ASPIRIN 81 MG ENTERIC COATED PO SCH (09:46)
[2018-07-23] MEDS: MYCOPHENOLATE MOFETIL 250 MG CAP PO SCH ×2 (09:46→20:30)
[2018-07-23] MEDS: NIFEDIPINE CR 30 MG TAB PO SCH (09:47)
[2018-07-23] MEDS: CALCITRIOL 0.25 MCG CAP PO SCH (09:47)
[2018-07-23] MEDS: SEVELAMER CARBONATE 800 MG TAB PO SCH ×3 (09:47→21:00)
[2018-07-23] MEDS: SODIUM BICARBONATE 650 MG TAB PO SCH ×2 (09:47→17:59)
[2018-07-23] MEDS: ONDANSETRON HCL 4 MG ORAL DISINTEGRATING TAB PO SCH ×2 (09:47→17:59)
[2018-07-23] MEDS: FINASTERIDE 5 MG TAB PO SCH (09:47)
[2018-07-23] MEDS: CLOPIDOGREL BISULFATE 75 MG TAB PO SCH (09:50)
--- NOTE | 2018-07-23 12:18 | Diagnostic Imaging Report ---
PROCEDURE: Frontal and lateral views of the chest. COMPARISON: Chest radiograph 07/16/18. INDICATIONS: PNEUMONIA FINDINGS: Lines/tubes: None. Lungs: Low lung volumes, with likely mild pulmonary interstitial edema. Left retrocardiac opacity is present. Patchy right basilar opacity, likely atelectasis. Pleura: There is no pleural effusion or pneumothorax. Heart and mediastinum: The cardiomediastinal silhouette is unchanged. Status post CABG. Bones: No acute bony abnormality. IMPRESSION: Left retrocardiac opacity may represent atelectasis. Superimposed pneumonia is possible in the appropriate clinical setting. Low lung volumes, with likely mild pulmonary interstitial edema. Status post CABG. Dictated by: MARIAM PAN M.D. on 07/22/2018 at 10:50 Electronically approved by: MARIAM PAN M.D. on 07/22/2018 at 10:50
[2018-07-23] MEDS: TACROLIMUS 1 MG CAP PO SCH (21:00)
[2018-07-23] MEDS: ACETAMINOPHEN 325 MG TAB PO PRN (23:58)
[2018-07-24] VITALS (7 sets, daily range): BP systolic 121–175; BP diastolic 64–83
[2018-07-24] MEDS: IPRATROPIUM BROMIDE 0.02% 2.5 ML NEB NEB SCH ×4 (01:07→20:00)
[2018-07-24 05:24] LABS: BASOPHILS % 0.4 % (0.0-1.0); EOSINOPHILS # (AUTO) 0.1 (0.0-0.4); EOSINOPHILS % 2.8 % (0.0-6.0); HEMATOCRIT 33.6 % (38.2-49.6); HEMOGLOBIN 11.3 g/dL (14.0-18.0); LYMPHOCYTES # (AUTO) 1.1 (1.0-3.2); MEAN CORPUSCULAR HGB CONC 33.6 g/dL (31-35); MEAN CORPUSCULAR VOLUME 92.3 fL (81-99); MONOCYTES # (AUTO) 0.6 (0.2-0.8); MONOCYTES % 12.7 % (4.4-11.3); NEUTROPHILS # (AUTO) 2.8 (2.1-6.9); NEUTROPHILS % 60.7 % (38.7-80.0); PLATELET COUNT 140 x10e3/uL (140-360); RED BLOOD COUNT 3.64 x10e6/uL (4.3-5.7); RED CELL DISTRIBUTION WIDTH 13.3 % (11.7-14.4)
[2018-07-24 05:48] LABS: ALANINE AMINOTRANSFERASE 13 IU/L (0-55); ALBUMIN 2.9 g/dL (3.5-5.0); ALBUMIN/GLOBULIN RATIO 1.2 (0.8-2.0); ALKALINE PHOSPHATASE 63 IU/L (40-150); ANION GAP 12.5 mmol/L (8-16); BLOOD UREA NITROGEN 20 mg/dL (7-26); BUN/CREATININE RATIO 18 (6-25); CALCIUM 9.4 mg/dL (8.4-10.2); CARBON DIOXIDE 30 mmol/L (22-29); CHLORIDE 102 mmol/L (98-107); CREATININE, SERUM 1.12 mg/dL (0.72-1.25); EST GLOMERULAR FILTRATION RATE > 60 ML/MIN (60-); GLUCOSE 233 mg/dL (74-118); POTASSIUM 3.5 mmol/L (3.5-5.1); SODIUM 141 mmol/L (136-145)
[2018-07-24] MEDS: ALBUTEROL SULF 0.083% NEB SOLN 3 ML NEB NEB SCH ×3 (06:00→18:00)
[2018-07-24] MEDS: AMLODIPINE BESYLATE 10 MG TAB PO SCH ×2 (09:00→12:42)
[2018-07-24] MEDS: CARVEDILOL 12.5 MG TAB PO SCH ×2 (09:00→17:00)
[2018-07-24] MEDS: ASPIRIN 81 MG ENTERIC COATED PO SCH (09:00)
[2018-07-24] MEDS: TACROLIMUS 0.5 MG CAP PO SCH (09:12)
[2018-07-24] MEDS: INSULIN REGULAR, HUMAN 100 UNIT/1 ML 3ML VIAL SQ SCH ×4 (09:13→20:23)
[2018-07-24] MEDS: FLUDROCORTISONE ACETATE 0.1 MG TAB PO SCH ×2 (09:13→17:19)
[2018-07-24] MEDS: CLOPIDOGREL BISULFATE 75 MG TAB PO SCH (09:13)
[2018-07-24] MEDS: MYCOPHENOLATE MOFETIL 250 MG CAP PO SCH ×2 (09:13→20:23)
[2018-07-24] MEDS: NIFEDIPINE CR 30 MG TAB PO SCH (09:13)
[2018-07-24] MEDS: FINASTERIDE 5 MG TAB PO SCH (09:13)
[2018-07-24] MEDS: FAMOTIDINE 20 MG/2 ML VIAL IV SCH ×2 (09:13→17:13)
[2018-07-24] MEDS: SEVELAMER CARBONATE 800 MG TAB PO SCH ×3 (09:14→20:23)
[2018-07-24] MEDS: SODIUM BICARBONATE 650 MG TAB PO SCH ×2 (09:14→17:13)
[2018-07-24] MEDS: CALCITRIOL 0.25 MCG CAP PO SCH (09:14)
[2018-07-24] MEDS: ONDANSETRON HCL 4 MG ORAL DISINTEGRATING TAB PO SCH ×2 (09:14→17:13)
[2018-07-24] MEDS: PIPERACILLIN/TAZO 2.25 GM 50 ML IV SCH ×2 (15:38→22:00)
[2018-07-24] MEDS: TACROLIMUS 1 MG CAP PO SCH (20:23)
[2018-07-24] MEDS: INSULIN DETEMIR 100 UNIT/ML PEN SQ SCH (20:24)
[2018-07-25] VITALS: BP 142/79
[2018-07-25] MEDS: IPRATROPIUM BROMIDE 0.02% 2.5 ML NEB NEB SCH ×3 (01:00→13:10)
[2018-07-25 04:00] VITALS: BP 153/85
[2018-07-25] MEDS: PIPERACILLIN/TAZO 2.25 GM 50 ML IV SCH (06:00)
[2018-07-25] MEDS: ALBUTEROL SULF 0.083% NEB SOLN 3 ML NEB NEB SCH ×2 (06:00→13:10)
[2018-07-25 08:00] VITALS: BP 149/73
[2018-07-25 08:33] VITALS: BP 149/73
[2018-07-25] MEDS: ASPIRIN 81 MG ENTERIC COATED PO SCH (09:00)
[2018-07-25] MEDS: MYCOPHENOLATE MOFETIL 250 MG CAP PO SCH (09:12)
[2018-07-25] MEDS: INSULIN REGULAR, HUMAN 100 UNIT/1 ML 3ML VIAL SQ SCH (09:12)
[2018-07-25] MEDS: FAMOTIDINE 20 MG/2 ML VIAL IV SCH (09:12)
[2018-07-25] MEDS: TACROLIMUS 0.5 MG CAP PO SCH (09:12)
[2018-07-25] MEDS: FINASTERIDE 5 MG TAB PO SCH (09:13)
[2018-07-25] MEDS: CALCITRIOL 0.25 MCG CAP PO SCH (09:13)
[2018-07-25] MEDS: SODIUM BICARBONATE 650 MG TAB PO SCH (09:13)
[2018-07-25] MEDS: NIFEDIPINE CR 30 MG TAB PO SCH (09:13)
[2018-07-25] MEDS: SEVELAMER CARBONATE 800 MG TAB PO SCH (09:13)
[2018-07-25] MEDS: FLUDROCORTISONE ACETATE 0.1 MG TAB PO SCH (09:13)
[2018-07-25] MEDS: ONDANSETRON HCL 4 MG ORAL DISINTEGRATING TAB PO SCH (09:13)
[2018-07-25] MEDS: CLOPIDOGREL BISULFATE 75 MG TAB PO SCH (09:13)
[2018-07-25 12:00] VITALS: BP 170/83
[2018-07-25] MEDS: ACETAMINOPHEN 325 MG TAB PO PRN (14:28)
[2018-07-25 16:00] VITALS: BP 136/68
[2018-07-25] MEDS ORDERED: CIPRO500 MG PO (16:06)
--- OUTSIDE RECORDS SUMMARY | 2018-08-08 07:07 | XMS REPORT | Clinical Summary ---
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 Disp. Refills Start End Date Status Date tacrolimus (PROGRAF) 1 MG Take 1 capsule (1 mg 60 capsule 11 06/06/20 Active capsuleIndications: total) by mouth 2 (two) 17 Transplanted kidney times a day. mycophenolate (CELLCEPT) Take 2 tablets (1,000 mg 120 tablet 11 09/26/20 Active 500 mg tablet total) by mouth 2 (two) 17 18 times a day. aspirin (ECOTRIN) 81 MG Take 81 mg by mouth Active enteric coated tablet daily. insulin GLARGINE (LANTUS) Inject 20 Units under the Active 100 unit/mL injection skin daily. (vial) insulin glulisine Inject under the skin 3 Active (APIDRA) 100 unit/mL (three) times a day injection before meals. metoprolol succinate XL Take 0.5 tablets (12.5 mg 30 tablet 2 Active (TOPROL-XL) 25 mg 24 hr total) by mouth daily. 18 tablet tamsulosin (FLOMAX) 0.4 Take 1 capsule (0.4 mg 30 capsule 11 07/11/20 12/07/19 Discontin mg capsule,extended total) by mouth daily. 17 18 ued release 24hr tacrolimus (PROGRAF) 0.5 Take 1 capsule (0.5 mg 30 capsule 11 12/07/19 Discontin MG capsuleIndications: total) by mouth every 17 18 ued Transplanted kidney morning. mycophenolate (CELLCEPT) Take 2 tablets (1,000 mg 120 tablet 2 09/26/20 Discontin 500 mg tablet total) by mouth 2 (two) 17 17 ued times a day. predniSONE (DELTASONE) 5 Take 1 tablet (5 mg 07/11/20 07/31/20 Discontin mg tablet total) by mouth daily. 17 17 ued metoprolol succinate XL Take 1 tablet (25 mg 30 tablet 11 07/11/20 12/07/19 Discontin (TOPROL-XL) 25 mg 24 hr total) by mouth daily. 17 18 ued tablet nitrofurantoin, Take 1 capsule (100 mg 20 capsule 0 07/12/20 macrocrystal-monohydrate, total) by mouth 2 (two) 17 17 (MACROBID) 100 MG times a day for 10 days. capsuleIndications: Urinary tract infection, site not specified predniSONE (DELTASONE) 5 Take 1 tablet (5 mg 30 tablet 07/31/20 07/31/20 mg tablet total) by mouth daily. 17 18 levoFLOXacin (LEVAQUIN) Take 500 mg by mouth 12/13/19 Discontin 500 MG tablet daily. 18 ued metoprolol succinate XL Take 25 mg by mouth daily 12/13/19 Discontin (TOPROL-XL) 50 mg 24 hr as needed. Patient said 18 ued tablet he only takes 1/2 tablet of 50mg PRN when BP is high. He gets dizzy when he takes it daily. amoxicillin-pot Take 1 tablet by mouth 2 14 tablet 0 12/13/19 Discontin clavulanate (AUGMENTIN) (two) times a day for 7 18 18 ued 875-125 mg per tablet days. acetaminophen (TYLENOL) Take 1 tablet (500 mg 12/13/19 01/13/20 500 MG tablet total) by mouth every 6 18 18 (six) hours as needed for mild pain or moderate pain for up to 30 days. amLODIPine (NORVASC) 5 mg Take 1 tablet (5 mg 15 tablet 0 12/14/19 12/13/19 Discontin tablet total) by mouth daily for 18 18 ued 15 days. amLODIPine (NORVASC) 5 mg Take 1 tablet (5 mg 15 tablet 0 12/14/19 12/13/19 Discontin tablet total) by mouth daily. 18 18 ued metoprolol succinate XL Take 0.5 tablets (25 mg 12/13/19 12/13/19 Discontin (TOPROL-XL) 50 mg 24 hr total) by mouth daily as 18 18 ued tablet needed (high blood pressure) for up to 30 days. amLODIPine (NORVASC) 5 mg Take 1 tablet (5 mg 30 tablet 0 12/14/19 01/14/20 tablet total) by mouth daily for 18 18 30 days. amoxicillin-pot Take 1 tablet by mouth 2 28 tablet 0 12/21/19 clavulanate (AUGMENTIN) (two) times a day for 14 18 18 875-125 mg per tablet days. 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; Encounter for therapeutic drug monitoring; Kidney replaced by transplant; 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; Mixed hyperlipidemia; Proteinuria, unspecified type; Tertiary hyperparathyroidism; Vitamin D deficiency; Urinary tract infection without hematuria, site unspecified 01/16/2018 Telephone Transplant Ger Garcia Advice Only 12/21/2017 Documentation Infectious Diseases Samara Valle RN 12/21/2017 Orders Only Infectious Diseases Samara Valle RN 12/11/2017 Procedure Pass Transplant 12/06/2017 Hospital Transplant Eliud Lobo, Skin ulcer of right heel - Encounter DO with fat layer exposed 12/13/2017 Marie Arvizu MD (Primary Dx); Cellulitis of right foot; Kidney transplant recipient; Immunosuppressed status; Hypotension, unspecified hypotension type 09/26/2017 Refill Transplant Jayne Rangel RN Med Refill 09/25/2017 Telephone Transplant Joyce Munguia MA Medication refill 08/13/2017 Telephone Transplant Jayne Rangel RN Lab Results Follow Up 08/09/2017 Telephone Transplant Ger Garcia Advice Only 08/03/2017 Telephone Transplant Jayne Rangel, studio potter Follow Up 08/01/2017 Telephone Transplant Jayne Rangel RN Prednisone Script 08/01/2017 Telephone Transplant AngeliqueildefonsoLora MA Rx Issue 07/31/2017 Refill Transplant Jayne Rangel RN Med Refill 07/31/2017 Telephone Transplant Melvina Lee MA Med Refill 07/26/2017 Telephone Transplant Jayne Rangel RN txp coord change 07/18/2017 Telephone Transplant Melvina Lee MA Lab Results after 07/15/2017 Social History Tobacco Use Types Packs/Day Years Used Date Never Smoker Smokeless Tobacco: Never Used Alcohol Use Drinks/Week oz/Week Comments No "Drink socially before [place] drinking more than 10 years ago" Sex Assigned at Date Recorded Not on file Last Filed Vital Signs Vital Sign Reading Time Taken Blood Pressure 136/63 12/13/2017 3:27 PM [employer]END[employer] Pulse 81 12/13/2017 3:27 PM [employer] Temperature 35.6 C (96.1 F) 12/13/2017 3:27 PM [employer]ENDANT Respiratory Rate 17 12/13/2017 3:27 PM [employer] Oxygen Saturation 99% 12/13/2017 3:27 PM [employer]END[employer] Inhaled Oxygen - - Concentration Weight 99.6 kg (219 lb 9 oz) 12/11/2017 6:17 AM [employer]END[employer] Height 182.9 cm (6') 12/07/2017 12:53 AM [employer]END[employer] Body Mass Index 29.78 12/11/2017 6:17 AM [employer] ATTENDANT Plan of Treatment Health Maintenance Due Date Last Done Comments DIABETIC FOOT EXAM 1975 DIABETIC RETINAL EYE EXAM 1975 COLON CANCER SCREENING 2015 SHINGRIX VACCINE (#1) 2015 INFLUENZA VACCINE 06/05/2018 Procedures Procedure Name Priority Date/Time Associated Diagnosis Comments POC GLUCOSE Routine 12/13/2017 Results for this 1:35 PM [employer]END[employer] procedure are in the results section. POC GLUCOSE Routine 12/13/2017 Results for this 7:33 AM [employer]END[employer] procedure are in the results section. ZZESTIMATED GFR Routine 12/13/2017 Results for this 5:20 AM [employer] ATTEND[employer] procedure are in the results section. PHOSPHORUS LEVEL Routine 12/13/2017 Results for this 5:20 AM [employer]END[employer] procedure are in the results section. MAGNESIUM LEVEL Routine 12/13/2017 Results for this 5:20 AM [employer]END[employer] procedure are in the results section. FK506 LEVEL Routine 12/13/2017 Results for this 5:20 AM [employer] ATTENDANT procedure are in the results section. HC COMPLETE BLD COUNT Routine 12/13/2017 Results for this W/AUTO DIFF 5:20 AM [employer]ENDANT procedure are in the results section. BASIC METABOLIC PANEL Routine 12/13/2017 Results for this 5:20 AM [employer] ATTEND[employer] procedure are in the results section. POC GLUCOSE Routine 12/12/2017 Results for this 9:22 PM [employer]END[employer] procedure are in the results section. POC GLUCOSE Routine 12/12/2017 Results for this 5:27 PM [employer] ATTEND[employer] procedure are in the results section. POC GLUCOSE Routine 12/12/2017 Results for this 11:59 AM [employer] ATTENDANT procedure are in the results section. POC GLUCOSE Routine 12/12/2017 Results for this 8:12 AM [employer] ATTENDANT procedure are in the results section. ZZESTIMATED GFR Routine 12/12/2017 Results for this 4:55 AM [employer] ATTEND[employer] procedure are in the results section. PHOSPHORUS LEVEL Routine 12/12/2017 Results for this 4:55 AM [employer] ATTEND[employer] procedure are in the results section. MAGNESIUM LEVEL Routine 12/12/2017 Results for this 4:55 AM [employer] ATTEND[employer] procedure are in the results section. FK506 LEVEL Routine 12/12/2017 Results for this 4:55 AM [employer] ATTENDANT procedure are in the results section. CBC WITH PLATELET AND Routine 12/12/2017 Results for this DIFFERENTIAL 4:55 AM [employer]END[employer] procedure are in the results section. BASIC METABOLIC PANEL Routine 12/12/2017 Results for this 4:55 AM [employer] ATTEND[employer] procedure are in the results section. POC GLUCOSE Routine 12/11/2017 Results for this 10:53 PM [employer] ATTENDANT procedure are in the results section. POC GLUCOSE Routine 12/11/2017 Results for this 6:37 PM [employer] ATTENDANT procedure are in the results section. POC GLUCOSE Routine 12/11/2017 Results for this 2:54 PM [employer] ATTENDANT procedure are in the results section. MRI LOWER EXTREMITY JOINT Routine 12/11/2017 Results for this WO CONTRAST RIGHT 2:32 PM [employer]END[employer] procedure are in the results section. POC GLUCOSE Routine 12/11/2017 Results for this 9:39 AM [employer] ATTENDANT procedure are in the results section. ZZESTIMATED GFR Routine 12/11/2017 Results for this 5:55 AM [employer] ATTENDANT procedure are in the results section. BASIC METABOLIC PANEL Routine 12/11/2017 Results for this 5:55 AM [employer] ATTENDANT procedure are in the results section. FK506 LEVEL Routine 12/11/2017 Results for this 5:55 AM [employer] ATTEND[employer] procedure are in the results section. HC COMPLETE BLD COUNT Routine 12/11/2017 Results for this W/AUTO DIFF 5:55 AM [employer]END[employer] procedure are in the results section. PROINSULIN LEVEL Routine 12/11/2017 Results for this 5:55 AM [employer]END[employer] procedure are in the results section. C-PEPTIDE Routine 12/11/2017 Results for this 5:55 AM [employer]END[employer] procedure are in the results section. ZINC TRANSPORTER 8 Routine 12/11/2017 Results for this ANTIBODY 5:55 AM [employer]END[employer] procedure are in the results section. ISLET CELL AB, IGG Routine 12/11/2017 Results for this 5:55 AM [employer] procedure are in the results section. GAD65 AB ASSAY, S Routine 12/11/2017 Results for this 5:55 AM [employer] procedure are in the results section. POC GLUCOSE Routine 12/10/2017 Results for this 11:53 PM [employer] ATTENDANT procedure are in the results section. POC GLUCOSE Routine 12/10/2017 Results for this 5:52 PM [employer] ATTENDANT procedure are in the results section. POC GLUCOSE Routine 12/10/2017 Results for this 12:38 PM [employer] ATTENDANT procedure are in the results section. ECHOCARDIOGRAM 2D Routine 12/10/2017 Results for this COMPLETE W MMODE SPECTRAL 11:00 AM [employer] VA[employer] ATTENDANT procedure are in the COLOR DOPPLER ([id number]) results section. POC GLUCOSE Routine 12/10/2017 Results for this 9:20 AM [employer] ATTENDANT procedure are in the results section. POC GLUCOSE Routine 12/10/2017 Results for this 8:04 AM [employer] VA[employer] ATTENDANT procedure are in the results section. ZZESTIMATED GFR Routine 12/10/2017 Results for this 5:55 AM [employer] ATTENDANT procedure are in the results section. FK506 LEVEL Routine 12/10/2017 Results for this 5:55 AM [employer] ATTENDANT procedure are in the results section. COMPREHENSIVE METABOLIC Routine 12/10/2017 Results for this PANEL 5:55 AM [employer] ATTEND[employer] procedure are in the results section. HC COMPLETE BLD COUNT Routine 12/10/2017 Results for this W/AUTO DIFF 5:55 AM [employer] ATTENDANT procedure are in the results section. PREALBUMIN LEVEL Routine 12/10/2017 Results for this 5:55 AM [employer] ATTEND[employer] procedure are in the results section. POC GLUCOSE Routine 12/09/2017 Results for this 11:18 PM [employer] ATTENDANT procedure are in the results section. POC GLUCOSE Routine 12/09/2017 Results for this 6:16 PM [employer] ATTENDANT procedure are in the results section. POC GLUCOSE Routine 12/09/2017 Results for this 1:13 PM [employer] ATTENDANT procedure are in the results section. POC GLUCOSE Routine 12/09/2017 Results for this 8:37 AM [employer] ATTENDANT procedure are in the results section. ZZESTIMATED GFR Routine 12/09/2017 Results for this 5:00 AM [employer] ATTENDANT procedure are in the results section. HC COMPLETE BLD COUNT Routine 12/09/2017 Results for this W/AUTO DIFF 5:00 AM [employer] ATTENDANT procedure are in the results section. COMPREHENSIVE METABOLIC Routine 12/09/2017 Results for this PANEL 5:00 AM [employer] ATTENDANT procedure are in the results section. POC GLUCOSE Routine 12/08/2017 Results for this 11:05 PM [employer] ATTENDANT procedure are in the results section. POC GLUCOSE Routine 12/08/2017 Results for this 5:44 PM [employer] ATTENDANT procedure are in the results section. POC GLUCOSE Routine 12/08/2017 Results for this 1:09 PM [employer] ATTENDANT procedure are in the results section. VANCOMYCIN LEVEL, TROUGH Timed 12/08/2017 Results for this 11:36 AM [employer] ATTENDANT procedure are in the results section. XR CHEST 2 VW Routine 12/08/2017 Results for this 8:16 AM [employer] ATTENDANT procedure are in the results section. POC GLUCOSE Routine 12/08/2017 Results for this 7:21 AM [employer] ATTENDANT procedure are in the results section. FK506 LEVEL Routine 12/08/2017 Results for this 5:30 AM [employer] VA[employer] ATTENDANT procedure are in the results section. HC COMPLETE BLD COUNT Routine 12/08/2017 Results for this W/AUTO DIFF 5:30 AM [employer] ATTENDANT procedure are in the results section. ZZESTIMATED GFR Routine 12/08/2017 Results for this 4:00 AM [employer] ATTENDANT procedure are in the results section. COMPREHENSIVE METABOLIC Routine 12/08/2017 Results for this PANEL 4:00 AM [employer] ATTENDANT procedure are in the results section. POC GLUCOSE Routine 12/07/2017 Results for this 9:22 PM [employer] VA[employer] ATTENDANT procedure are in the results section. POC GLUCOSE Routine 12/07/2017 Results for this 3:35 PM [employer] ATTENDANT procedure are in the results section. PV PHYSIOLOGIC ARTERIAL Routine 12/07/2017 Results for this LOWER EXTREMITY COMPLETE 3:25 PM [employer] ATTENDANT procedure are in the results section. HEMOGLOBIN A1C Routine 12/07/2017 Results for this 7:00 AM [employer] ATTENDANT procedure are in the results section. B NATRIURETIC PEPTIDE Routine 12/07/2017 Results for this 7:00 AM [employer] ATTENDANT procedure are in the results section. PARTIAL THROMBOPLASTIN Routine 12/07/2017 Results for this TIME (PTT) 7:00 AM [employer] VA[employer] ATTENDANT procedure are in the results section. PROTHROMBIN TIME WITH INR Routine 12/07/2017 Results for this 7:00 AM [employer] ATTENDANT procedure are in the results section. HC COMPLETE BLD COUNT Routine 12/07/2017 Results for this W/AUTO DIFF 7:00 AM [employer] ATTENDANT procedure are in the results section. FK506 LEVEL Routine 12/07/2017 Results for this 7:00 AM [employer] VA[employer] ATTENDANT procedure are in the results section. US RENAL TRANSPLANT Routine 12/07/2017 Results for this DOPPLER 6:31 AM [employer] ATTENDANT procedure are in the results section. BILIRUBIN DIRECT Routine 12/07/2017 Results for this 4:00 AM [employer] ATTENDANT procedure are in the results section. ZZESTIMATED GFR Routine 12/07/2017 Results for this 4:00 AM [employer] VA[employer] ATTENDANT procedure are in the results section. URIC ACID LEVEL Routine 12/07/2017 Results for this 4:00 AM [employer] VAULT ATTENDANT procedure are in the results section. T4, FREE Routine 12/07/2017 Results for this 4:00 AM [employer] VA[employer] ATTENDANT procedure are in the results section. THYROID STIMULATING Routine 12/07/2017 Results for this HORMONE 4:00 AM [employer] ATTENDANT procedure are in the results section. PREALBUMIN LEVEL Routine 12/07/2017 Results for this 4:00 AM [employer] VA[employer] ATTENDANT procedure are in the results section. PHOSPHORUS LEVEL Routine 12/07/2017 Results for this 4:00 AM [employer] VA[employer] ATTENDANT procedure are in the results section. MAGNESIUM LEVEL Routine 12/07/2017 Results for this 4:00 AM [employer] VA[employer] ATTENDANT procedure are in the results section. LIPID PANEL Routine 12/07/2017 Results for this 4:00 AM [employer] ATTENDANT procedure are in the results section. LACTIC ACID LEVEL Routine 12/07/2017 Results for this 4:00 AM [employer] VAULT ATTENDANT procedure are in the results section. COMPREHENSIVE METABOLIC Routine 12/07/2017 Results for this PANEL 4:00 AM [employer] VA[employer] ATTENDANT procedure are in the results section. CREATINE KINASE, TOTAL Routine 12/07/2017 Results for this (CPK) 4:00 AM [employer] ATTENDANT procedure are in the results section. VITAMIN D 25 HYDROXY Routine 12/07/2017 Results for this LEVEL 4:00 AM [employer] ATTENDANT procedure are in the results section. TROPONIN Timed 12/07/2017 Results for this 2:10 AM [employer] ATTENDANT procedure are in the results section. LACTIC ACID LEVEL, SEPSIS Timed 12/07/2017 Results for this - NOW AND REPEAT 2X EVERY 1:09 AM [employer]UR VAULT ATTENDANT procedure are in the 3 HOURS results section. ANAEROBIC CULTURE Routine 12/07/2017 Results for this 12:00 AM [employer] ATTENDANT procedure are in the results section. GRAM STAIN Routine 12/07/2017 Results for this 12:00 AM [employer] VAULT ATTENDANT procedure are in the results section. AEROBIC CULTURE Routine 12/07/2017 Results for this 12:00 AM [employer] VA[employer] ATTENDANT procedure are in the results section. ECG 12-LEAD STAT 12/06/2017 Results for this 11:52 PM [employer] VA[employer] ATTENDANT procedure are in the results section. XR FOOT 3+ VW RIGHT STAT 12/06/2017 Results for this 11:39 PM [employer] ATTENDANT procedure are in the results section. XR CHEST 1 VW PORTABLE STAT 12/06/2017 Results for this 10:55 PM [employer] ATTENDANT procedure are in the results section. ZZESTIMATED GFR STAT 12/06/2017 Results for this 10:50 PM [employer] VA[employer] ATTENDANT procedure are in the results section. TROPONIN STAT 12/06/2017 Results for this 10:50 PM [employer] VA[employer] ATTENDANT procedure are in the results section. FK506 LEVEL STAT 12/06/2017 Results for this 10:50 PM [employer] VAULT ATTENDANT procedure are in the results section. LACTIC ACID LEVEL, SEPSIS STAT 12/06/2017 Results for this - NOW AND REPEAT 2X EVERY 10:50 PM [employer] VAULT ATTENDANT procedure are in the 3 HOURS results section. HC COMPLETE BLD COUNT STAT 12/06/2017 Results for this W/AUTO DIFF 10:50 PM [employer] ATTENDANT procedure are in the results section. COMPREHENSIVE METABOLIC STAT 12/06/2017 Results for this PANEL 10:50 PM [employer] ATTENDANT procedure are in the results section. BLOOD CULTURE, AEROBIC & Routine 12/06/2017 Results for this ANAEROBIC 10:50 PM [employer] ATTENDANT procedure are in the results section. BLOOD CULTURE, AEROBIC & Routine 12/06/2017 Results for this ANAEROBIC 10:50 PM [employer]UR VAULT ATTENDANT procedure are in the results section. after 07/15/2017 Results * POC glucose (12/13/2017 1:35 PM) Only the most recent of 25 results within the time period is included. POC glucose 134 (H) 65 - 99 mg/dL [facility] DEPARTMENT OF Comment: PATHOLOGY AND [facility] Notified RN GENOMIC MEDICINE Meter ID: [id number] Personnel Records Clerk: [facility] Organization Address City/State/Zipcode Phone Number [facility] DEPARTMENT OF [address] [place] [address] PATHOLOGY AND GENOMIC MEDICINE * Estimated GFR (12/13/2017 5:20 AM) Only the most recent of 8 results within the time period is included. GFR Non Af Amer >90 mL/min/1.73 m2 [facility] DEPARTMENT OF PATHOLOGY AND GENOMIC MEDICINE GFR Af Amer >90 mL/min/1.73 m2 [facility] DEPARTMENT OF Comment: PATHOLOGY AND Chronic kidney disease: <60 GENOMIC MEDICINE mL/min/1.73m2 Kidney failure: <15 mL/min/1.73m2 The estimated GFR is calculated from the IDMS-traceable Modification of Diet in Renal Disease Equation. The accuracy of the calculation is poor when the creatinine is normal. Calculated values >90 mL/min/1.73m2 are not reported. This equation has not been validated in children (<18 years), women, the elderly (>70 years), or ethnic groups other than Caucasians and Americans. Specimen Plasma specimen Performing Organization Address City/State/[place] [address] PATHOLOGY AND [facility] * FK506 level (12/13/2017 5:20 AM) Only the most recent of 7 results within the time period is included. FK506 level 4.2 ng/mL [facility] DEPARTMENT OF Comment: PATHOLOGY AND Therapeutic range 5-20 ng/mL [facility] for 12 hour trough. The range varies depending on the organ transplanted, time after transplantation and co-administered immunosuppressant therapies. Please use clinical judgment to interpret test result. Test performed using [employer] Clerk chemiluminescent microparticle immunoassay for Tacrolimus on the COACH DRIVER i System. Specimen Blood Performing Organization Address [facility] [place] [address] PATHOLOGY AND [facility] * CBC with platelet and differential (12/13/2017 5:20 AM) Only the most recent of 8 results within the time period is included. WBC 6.34 4.50 - 11.00 k/uL [facility] DEPARTMENT OF PATHOLOGY AND GENOMIC MEDICINE RBC 3.91 (L) 4.40 - 6.00 m/uL [facility] DEPARTMENT OF PATHOLOGY AND GENOMIC MEDICINE HGB 12.3 (L) 14.0 - 18.0 g/dL [facility] DEPARTMENT OF PATHOLOGY AND GENOMIC MEDICINE HCT 36.5 (L) 41.0 - 51.0 % [facility] DEPARTMENT OF PATHOLOGY AND GENOMIC MEDICINE MCV 93.4 82.0 - 100.0 fL [facility] DEPARTMENT OF PATHOLOGY AND GENOMIC MEDICINE MCH 31.5 27.0 - 34.0 pg [facility] DEPARTMENT OF PATHOLOGY AND GENOMIC MEDICINE MCHC 33.7 31.0 - 37.0 g/dL [facility] DEPARTMENT OF PATHOLOGY AND GENOMIC MEDICINE RDW - SD 46.2 37.0 - 55.0 fL [facility] DEPARTMENT OF PATHOLOGY AND GENOMIC MEDICINE MPV 10.1 8.8 - 13.2 fL [facility] DEPARTMENT OF PATHOLOGY AND GENOMIC MEDICINE Platelet count 190 150 - 400 k/uL [facility] DEPARTMENT OF PATHOLOGY AND GENOMIC MEDICINE Nucleated RBC 0.00 /100 WBC [facility] DEPARTMENT OF PATHOLOGY AND GENOMIC MEDICINE Neutrophils 66.0 39.0 - 69.0 % [facility] DEPARTMENT OF PATHOLOGY AND GENOMIC MEDICINE Lymphocytes 21.3 (L) 25.0 - 45.0 % [facility] DEPARTMENT OF PATHOLOGY AND GENOMIC MEDICINE Monocytes 9.1 0.0 - 10.0 % [facility] DEPARTMENT OF PATHOLOGY AND GENOMIC MEDICINE Eosinophils 1.6 0.0 - 5.0 % [facility] DEPARTMENT OF PATHOLOGY AND GENOMIC MEDICINE Basophils 0.3 0.0 - 1.0 % [facility] DEPARTMENT OF PATHOLOGY AND GENOMIC MEDICINE Immature granulocytes 1.7 (H)Comment: "Immature 0.0 - 1.0 % [facility] DEPARTMENT OF granulocytes" (promyelocytes, PATHOLOGY AND myelocytes, metamyelocytes) GENOMIC MEDICINE Specimen Blood Performing Organization Address City/[facility] [address] PATHOLOGY AND [facility] * Phosphorus level (12/13/2017 5:20 AM) Only the most recent of 3 results within the time period is included. Phosphorus 2.5 2.4 - 4.5 mg/dL [facility] DEPARTMENT OF PATHOLOGY AND GENOMIC MEDICINE Specimen Plasma specimen Performing Organization Address City/[facility] [place] [address] PATHOLOGY AND [facility] * Magnesium level (12/13/2017 5:20 AM) Only the most recent of 3 results within the time period is included. Magnesium 1.8 1.6 - 2.6 mg/dL [facility] DEPARTMENT PATHOLOGY AND GENOMIC MEDICINE Specimen Plasma specimen Performing Organization Address City/[facility] [place] [address] PATHOLOGY [facility] * Basic metabolic panel (12/13/2017 5:20 AM) Only the most recent of 3 results within the time period is included. Sodium 140 135 - 148 mEq/L [facility] DEPARTMENT OF PATHOLOGY AND GENOMIC MEDICINE Potassium 4.1 3.5 - 5.0 mEq/L [facility] DEPARTMENT OF PATHOLOGY AND GENOMIC MEDICINE Chloride 105 98 - 112 mEq/L [facility] DEPARTMENT OF PATHOLOGY AND GENOMIC MEDICINE CO2 24 24 - 31 mEq/L [facility] DEPARTMENT OF PATHOLOGY AND GENOMIC MEDICINE Anion gap 11 7 - 15 mEq/L [facility] DEPARTMENT OF Comment: PATHOLOGY AND Starting from February [facility] , anion gap calculation no longer incorporates potassium. Please note the change. BUN 19 6 - 20 mg/dL [facility] DEPARTMENT OF PATHOLOGY AND GENOMIC MEDICINE Creatinine 0.7 0.7 - 1.2 mg/dL [facility] DEPARTMENT OF PATHOLOGY AND GENOMIC MEDICINE Glucose 105 (H) 65 - 99 mg/dL [facility] DEPARTMENT OF PATHOLOGY AND GENOMIC MEDICINE Calcium 7.9 (L) 8.3 - 10.2 mg/dL [facility] DEPARTMENT OF PATHOLOGY AND GENOMIC MEDICINE Specimen Plasma specimen Performing Organization Address City/State/Zipcode Phone Number [facility] DEPARTMENT OF [address] [place] [address] PATHOLOGY AND GENOMIC MEDICINE * MRI Lower Extremity Joint Wo Contrast Right (12/11/2017 2:32 PM) Narrative Performed At [facility] EXAMINATION: MRI LOWER EXTREMITY JOINT WO CONTRAST RIGHT CLINICAL HISTORY: right heel gangrene COMPARISON: None. TECHNIQUE: Multiplanar, multisequence images of the hindfoot are submitted which were performed without gadolinium. IMPRESSION: 1. There is diffuse subcutaneous edema along the heel, inferiorly, posteriorly, laterally and medially. Some of this edema extends into the mid foot. There is an area of T1 dark signal in the fat of the inferior heel pad which correlates with a small area of bright T2 weighted signal indicative of very small amount of fluid measuring about 6 mm. The plantar fascia is of normal signal. The Achilles tendon is unremarkable. 2. T1-weighted images demonstrate mild decreased signal along the lateral aspect of the calcaneus which is heterogeneous and nonfocal. This correlates with right signal on STIR weighted images. Osteomyelitis is the cause cannot be excluded but other causes of bone edema such as trauma or stress injury are not excluded. Degenerative changes of the foot are seen. [id number] Procedure Note Interface, Radiology Results Incoming - 12/11/2017 4:55 PM [facility]UR VAULT ATTENDANT EXAMINATION: MRI LOWER EXTREMITY JOINT WO CONTRAST RIGHT CLINICAL HISTORY: right heel gangrene COMPARISON: None. TECHNIQUE: Multiplanar, multisequence images of the hindfoot are submitted which were performed without gadolinium. IMPRESSION: 1. There is diffuse subcutaneous edema along the heel, inferiorly, posteriorly , laterally and medially. Some of this edema extends into the mid foot. There is an area of T1 dark signal in the fat of the inferior heel pad which correlates with a small area of bright T2 weighted signal indicative of very small amount of fluid measuring about 6 mm. The plantar fascia is of normal signal. The Achilles tendon is unremarkable. 2. T1-weighted images demonstrate mild decreased signal along the lateral aspect of the calcaneus which is heterogeneous and nonfocal. This correlates with right signal on STIR weighted images. Osteomyelitis is the cause cannot be excluded but other causes of bone edema such as trauma or stress injury are not excluded. Degenerative changes of the foot are seen. [facility]-[id number] Performing Organization Address [facility] Phone Number [phone] [place] [address] * GAD65 Ab assay, S (12/11/2017 5:55 AM) GAD65 Ab assay, S 0.04 (H) <=0.02 nmol/L [facility] DEPARTMENT OF Comment: PATHOLOGY AND The following antibody was NorSun identified: Glutamic Acid Decarboxylase. * This profile is consistent with predisposition to thyrogastric disorders, including thyroiditis, pernicious anemia, and type 1 diabetes, but has low specificity for neurological autoimmunity. GAD65 antibody values less than 2.00 nmol/L have a lower positive predictive value for neurological autoimmunity than values of 20.0 nmol/L and higher. * ADDITIONAL INFORMATION This test was developed and its performance characteristics determined by [facility] in a manner consistent with CLIA requirements. This test has not been cleared or approved by the U.S. Food and Drug Administration. Test Performed by: [facility] - [address] [address] Specimen Serum Performing Organization Address [facility] Phone Number [facility] OF [address] [place] [address] PATHOLOGY AND GENOMIC MEDICINE * Proinsulin level (12/11/2017 5:55 AM) Proinsulin 2.0 <=8.0 pmol/L [facility] Comment: INTERPRETIVE INFORMATION: Proinsulin, Intact Proinsulin, Intact: Fasting intact proinsulin values above the reference interval indicate a possible insulin secreting pancreatic tumor (insulinoma) in patients with hypoglycemia. Fasting intact proinsulin values range from 3 to 50 pmol/L in patients with untreated type 2 diabetes. Performed by [facility], [address] [place] [id number] [email or web address], Dallin Gregory MD - Lab. Director Specimen Serum Performing Organization Address [facility] Phone Number [facility] [address] [place] [address] * Zinc transporter 8 antibody (12/11/2017 5:55 AM) Zinc transporter 8 <10.0 0.0 - 15.0 U/mL [facility] antibody Comment: INTERPRETIVE INFORMATION: Zinc Transporter 8 Antibody A value greater than 15.0 Kronus Units/mL is considered positive for the Zinc Transporter 8 Antibody (ZnT8). Kronus Units are arbitrary. Kronus Units=U/mL. This assay is intended for the semi-quantitative determination of antibodies to ZnT8 in human serum. Results should be interpreted within the context of clinical symptoms. Performed by [facility], [address] [place] [id number] [email or web address], Dallin Gregory MD - Lab. Director Specimen Serum Performing Organization Address [facility] Number [facility] [address] [place] [address] * C-peptide (12/11/2017 5:55 AM) C-peptide 1.2 1.1 - 4.4 ng/mL [facility] DEPARTMENT OF PATHOLOGY AND GENOMIC MEDICINE Specimen Plasma specimen Performing Organization Address [facility] Phone Number [facility] DEPARTMENT OF [address] [place] [address] PATHOLOGY AND GENOMIC MEDICINE * Islet cell Ab, IgG (12/11/2017 5:55 AM) Islet cell Ab <1:4 <1:4 [facility] Comment: INTERPRETIVE INFORMATION: Islet Cell Ab, IgG Islet cell antibodies (ICAs) are associated with type 1 diabetes (TID), an autoimmune endocrine disorder. ICAs may be present years before the onset of clinical symptoms. To calculate Juvenile Diabetes Foundation (JDF) units: multiply the titer x 5 (1:8 8 x 5=40 JDF Units). Test developed and characteristics determined by [facility]. See Compliance Statement A: [facility]/ Performed by [facility], [address] [place] [address] www.[email or web address], Dallin Gregory MD - Lab. Director Specimen Serum Performing Organization Address City/State/Zipcode Phone Number [facility] [address] [place] [address] * Echocardiogram complete w contrast and 3D if needed (12/10/2017 11:00 AM) Narrative Performed At Echocardiography Report [facility] [address] [place] [address] Pat.Name: ANEL TAYLOR Tara.ID: [id number] .Date: 12/10/2017 Refer.MD: MARIE ARVIZU MD Exam Time: 10:13:00 AM Study Type:Routine Echo Height: 72in Weight: 213lb BSA: 2.19 m2 Age: 3 1965,52Y Sex: MALE BP: 175/84 HR: 73 bpm Sonogrphr: JERMAINE Stark Pat. Stat.:Inpatient Room: [facility] Study Status:Final Echo Event ID:[id number] Order ID: [id number] Reason for Study:Preoperative cardiac eval, Hypertension, LVH History / Clinical:Congestive Heart Failure, Coronary Artery Disease, Diabetes, Edema, Hyperlipidemia, Hypertension, Obesity, Kidney Disease, Anemia, Chronic Anemia, End-Stage Renal Disease, Headaches Procedures:2D Echo, Colorflow Doppler, Intravenous Definity Contrast Race: C SUMMARY: There is severe concentric LV hypertrophy. LV EF is normal. LA volume is moderately enlarged. LV relaxation is severely impaired. LV filling pressure is borderline elevated. Insufficient TR jet to estimate PA systolic pressure. FINDINGS: LV: LV size is normal. There is severe concentric LV hypertrophy. LV EF is normal. Overall wall motion is normal. Septal motion is paradoxical secondary to cardiac surgery. Estimated EF is 65-69% RV: RV size is normal. RV systolic function is normal. LA: LA volume is moderately enlarged. RA: RA size is normal. AO: Aortic root diameter is normal. DOROTA: Small posterior pericardial effusion. AV: Focal thickening of AV leaflets. MV: Focal calcification of mitral leaflets. Thickened and/or calcified mitral annulus. Calcified papillary muscle. PV: No structural PV abnormalities noted. TV: No structural TV abnormalities noted. Minor: LV relaxation is severely impaired. LV filling pressure is borderline elevated. Other: Insufficient TR jet to estimate PA systolic pressure. MEASUREMENTS: 2D Parasternal [place] LVOT 2.1 cm LA Ds 4.5 cm LVIDd 4.1 cm Index 1.9 cm/m Ao An 2.2 cm LVIDs 2.3 cm Ao Rtd 3.5 cm Index 1.6 cm/m LV%fs 44.9 % LV Mass 266.9 g (122-174) IVSd 1.6 cm LVM Index 121.9 g/m2 LVPWd 1.6 cm RWT 0.8 LA Sng Plane LA Area 27.1 cm2 (8.8-23.4) LA Vol 96.8 ml Index 44.2 ml/m LA LngAx 6.4 cm RA Sng Plane RA Area 13.7 cm2 (8.3-19.5) RA Vol 30.1 ml Index 13.7 ml/m RA LngAx 4.8 cm DOPPLER lateral late Em 4.6 cm/s Mitral Valve MV IVRT 92 msec Signed 12/10/2017 04:40 PM Maurilio Segovia M.D. Procedure Note Interface, Radiology Results In - 12/10/2017 4:41 PM FUR VAULT ATTENDANT Echocardiography Report [id number] [address] Pat.Name: ANEL TAYLOR Pat.ID: [id number] .Date: 12/10/2017 Refer.MD: MARIE ARVIZU MD Exam Time: 10:13:00 AM Study Type:Routine Echo Height: 72in Weight: 213lb BSA: 2.19 m2 Age: 3 1965,52Y Sex: MALE BP: 175/84 HR: 73 bpm Sonogrphr: JERMAINE Stark Pat. Stat.:Inpatient Room: [facility] Study Status:Final Echo Event ID:[id number] Order ID: [id number] Reason for Study:Preoperative cardiac eval, Hypertension, LVH History / Clinical:Congestive Heart Failure, Coronary Artery Disease, Diabetes, Edema, Hyperlipidemia, Hypertension, Obesity, Kidney Disease, Anemia, Chronic Anemia, End-Stage Renal Disease, Headaches Procedures:2D Echo, Colorflow Doppler, Intravenous Definity Contrast Race: C SUMMARY: There is severe concentric LV hypertrophy. LV EF is normal. LA volume is moderately enlarged. LV relaxation is severely impaired. LV filling pressure is borderline elevated. Insufficient TR jet to estimate PA systolic pressure. FINDINGS: LV: LV size is normal. There is severe concentric LV hypertrophy. LV EF is normal. Overall wall motion is normal. Septal motion is paradoxical secondary to cardiac surgery. Estimated EF is 65-69% RV: RV size is normal. RV systolic function is normal. LA: LA volume is moderately enlarged. RA: RA size is normal. AO: Aortic root diameter is normal. DOROTA: Small posterior pericardial effusion. AV: Focal thickening of AV leaflets. MV: Focal calcification of mitral leaflets. Thickened and/or calcified mitral annulus. Calcified papillary muscle. PV: No structural PV abnormalities noted. TV: No structural TV abnormalities noted. Minor: LV relaxation is severely impaired. LV filling pressure is borderline elevated. Other: Insufficient TR jet to estimate PA systolic pressure. MEASUREMENTS: 2D Parasternal [place] LVOT 2.1 cm LA Ds 4.5 cm LVIDd 4.1 cm Index 1.9 cm/m Ao An 2.2 cm LVIDs 2.3 cm Ao Rtd 3.5 cm Index 1.6 cm/m LV%fs 44.9 % LV Mass 266.9 g (122-174) IVSd 1.6 cm LVM Index 121.9 g/m2 LVPWd 1.6 cm RWT 0.8 LA Sng Plane LA Area 27.1 cm2 (8.8-23.4) LA Vol 96.8 ml Index 44.2 ml/m LA LngAx 6.4 cm RA Sng Plane RA Area 13.7 cm2 (8.3-19.5) RA Vol 30.1 ml Index 13.7 ml/m RA LngAx 4.8 cm DOPPLER lateral late Em 4.6 cm/s Mitral Valve MV IVRT 92 msec Signed 12/10/2017 04:40 PM Maurilio Segovia M.D. Performing Organization Address [facility] Phone Number [facility] [address] [place] [address] * Prealbumin level (12/10/2017 5:55 AM) Only the most recent of 2 results within the time period is included. Prealbumin 10 (L) 16 - 32 mg/dL [facility] DEPARTMENT OF PATHOLOGY AND GENOMIC MEDICINE Specimen Serum Performing Organization Address [facility] Phone Number [facility] DEPARTMENT OF [address] [place] [address] PATHOLOGY AND GENOMIC MEDICINE * Comprehensive metabolic panel (12/10/2017 5:55 AM) Only the most recent of 5 results within the time period is included. Sodium 136 135 - 148 mEq/L [facility] DEPARTMENT OF PATHOLOGY AND GENOMIC MEDICINE Potassium 4.2 3.5 - 5.0 mEq/L [facility] DEPARTMENT OF PATHOLOGY AND GENOMIC MEDICINE Chloride 103 98 - 112 mEq/L [facility] DEPARTMENT OF PATHOLOGY AND GENOMIC MEDICINE CO2 22 (L) 24 - 31 mEq/L [facility] DEPARTMENT OF PATHOLOGY AND GENOMIC MEDICINE Anion gap 11 7 - 15 mEq/L [facility] DEPARTMENT OF Comment: PATHOLOGY AND Starting from February GENOMIC MEDICINE , anion gap calculation no longer incorporates potassium. Please note the change. BUN 24 (H) 6 - 20 mg/dL [facility] DEPARTMENT OF PATHOLOGY AND GENOMIC MEDICINE Creatinine 0.9 0.7 - 1.2 mg/dL [facility] DEPARTMENT OF PATHOLOGY AND GENOMIC MEDICINE Glucose 191 (H) 65 - 99 mg/dL [facility] DEPARTMENT OF PATHOLOGY AND GENOMIC MEDICINE Calcium 9.0 8.3 - 10.2 mg/dL [facility] DEPARTMENT OF PATHOLOGY AND GENOMIC MEDICINE Protein 6.1 (L) 6.3 - 8.3 g/dL [facility] DEPARTMENT OF Comment: PATHOLOGY AND GENOMIC MEDICINE 4.6-7.0 g/dL 1 week 4.4-7.6 g/dL 7 months-1year 5.1-7.3 g/dL 1-2 years 5.6-7 .5 g/dL >3 years 6.0-8 .0 g/dL 18-150 6.3-8.3 g/dL Albumin 2.3 (L) 3.5 - 5.0 g/dL [facility] DEPARTMENT OF PATHOLOGY AND GENOMIC MEDICINE A/G ratio 0.6 (L) 0.7 - 3.8 [facility] DEPARTMENT OF PATHOLOGY AND GENOMIC MEDICINE Alkaline phosphatase 209 (H) 40 - 129 U/L [facility] DEPARTMENT OF PATHOLOGY AND GENOMIC MEDICINE AST 36 10 - 50 U/L [facility] DEPARTMENT OF PATHOLOGY AND GENOMIC MEDICINE ALT 33 5 - 50 U/L [facility] DEPARTMENT OF PATHOLOGY AND GENOMIC MEDICINE Total bilirubin 0.6 0.0 - 1.2 mg/dL [facility] DEPARTMENT OF PATHOLOGY AND GENOMIC MEDICINE Specimen Plasma specimen Performing Organization Address City/State/Zipcode Phone Number [facility] DEPARTMENT OF [address] [place] [address] PATHOLOGY AND GENOMIC MEDICINE * Vancomycin level, trough (12/08/2017 11:36 AM) Vancomycin, trough 9.2 (L) 10.0 - 20.0 ug/mL [facility] DEPARTMENT OF Comment: PATHOLOGY AND Therapeutic Ranges: GENOMIC MEDICINE Peak 30.0 - 40.0 ug/mL Trough 10.0 - 20.0 ug/mL Specimen Serum Performing Organization Address [facility] Phone Number [facility] DEPARTMENT OF [address] [place] [address] PATHOLOGY AND GENOMIC MEDICINE * XR Chest 2 Vw (12/08/2017 8:16 AM) Narrative Performed At PROCEDURE: XR CHEST 2 VW [facility] CLINICAL HISTORY: left lower lob opacity from portable. COMPARISON: December 06, 2017-December 20, 2015 TECHNIQUE: 2 views of the chest were performed in the PA and lateral projection. FINDINGS: No active pleural, parenchymal, or mediastinal abnormality is noted. The cardiac silhouette demonstrates left ventricular enlargement without evidence of failure. The patient has had a prior median sternotomy and CABG surgery. No acute abnormality is demonstrated of the visualized bones of the thorax. IMPRESSION: No significant interval change. No acute abnormality in the chest. Left ventricular enlargement without evidence of failure. [id number] Procedure Note Interface, Radiology Results Incoming - 12/08/2017 8:24 AM FUR VAULT ATTENDANT PROCEDURE: XR CHEST 2 VW CLINICAL HISTORY: left lower lob opacity from portable. COMPARISON: December 06, 2017-December 20, 2015 TECHNIQUE: 2 views of the chest were performed in the PA and lateral projection. FINDINGS: No active pleural, parenchymal, or mediastinal abnormality is noted. The cardiac silhouette demonstrates left ventricular enlargement without evidence of failure. The patient has had a prior median sternotomy and CABG surgery. No acute abnormality is demonstrated of the visualized bones of the thorax. IMPRESSION: No significant interval change. No acute abnormality in the chest. Left ventricular enlargement without evidence of failure. [id number] Performing Organization Address City/[facility]/Zipcode Phone Number [facility] [address] [phone] * Pv physiologic arterial lower extremity complete (12/07/2017 3:25 PM) Narrative Performed At [facility]ascular Diagnostic Laboratory [facility] Physiologic Arterial Leg Report [address] [id number] Pat.Name: ANEL TAYLOR Tara.ID: [id number] .Date: 12/07/2017 Refer.MD: MARIE ARVIZU MD Exam Time: 1:40:00 PM Study Type:Physiologic Leg Height: 72in Weight: 213lb BSA: 2.19 m2 Age: 3 1965,52Y Sex: MALE Sonogrphr: Ilda Mena RVT Pat. Stat.:Inpatient Room: D417 [facility] Vol: AD, CPT - 4: 55227 Echo Event ID:[id number] Order ID: [id number] Race: SUMMARY: PULSES: RIGHT LEFT Common Femoral + + Popliteal + + Dorsalis Pedis + + Posterior Tibial + + DOPPLER SIGNALS / ANALOG WAVEFORMS: DOPPLER SIGNALS ANALOG WAVEFORMS ARTERY RIGHT LEFT RIGHT LEFT Common Femoral Normal Normal Normal Normal Superficial Femoral Normal Normal Normal Normal Popliteal Normal Normal Normal Normal Posterior Tibial Normal Normal Normal Normal Dorsalis Pedis Normal Normal Normal Normal SEGMENTAL PRESSURE (mmHg): RIGHT LEFT Brachial 198 AVF High Thigh * * Low Thigh >254 >254 Calf >254 >254 Ankle DP >254 >254 Ankle PT >254 >254 Great Toe 158 Amputation ANKLE/BRACHIAL INDEX: RIGHT LEFT Dorsalis Pedis Non-Compressible Non-Compressible Posterior Tibial Non-Compressible Non-Compressible TOE/BRACHIAL INDEX: RIGHT LEFT 0.80 Amputation PRELIMINARY FINDINGS: 1. Doppler waveforms are normal, bilaterally. 2. Unable to obtain ankle brachial index due to non-compressible arteries. 3. 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 PHYSICIAN INTERPRETATION: 1. Bilateral lower extremity arterial exam demonstrates no evidence of occlusive disease. There is evidence of arterial calcinosis. Signed 12/07/2017 03:57 PM Catracho Weaver MD Procedure Note Interface, Radiology Results In - 12/07/2017 3:57 PM [facility] Physiologic Arterial Leg Report [id number] [address] Pat.Name: ANEL TAYLOR Pat.ID: [id number] .Date: 12/07/2017 Refer.MD: MARIE ARVIZU MD Exam Time: 1:40:00 PM Study Type:Physiologic Leg Height: 72in Weight: 213lb BSA: 2.19 m2 Age: 3 1965,52Y Sex: MALE Sonogrphr: Ilda Mena RVT Pat. Stat.:Inpatient Room: D417 Tape Vol: AD, [facility] - 4: [id number] Echo Event ID:[id number] Order ID: [id number] Race: SUMMARY: PULSES: RIGHT LEFT Common Femoral + + Popliteal + + Dorsalis Pedis + + Posterior Tibial + + DOPPLER SIGNALS / ANALOG WAVEFORMS: DOPPLER SIGNALS ANALOG WAVEFORMS ARTERY RIGHT LEFT RIGHT LEFT Common Femoral Normal Normal Normal Normal Superficial Femoral Normal Normal Normal Normal Popliteal Normal Normal Normal Normal Posterior Tibial Normal Normal Normal Normal Dorsalis Pedis Normal Normal Normal Normal SEGMENTAL PRESSURE (mmHg): RIGHT LEFT Brachial 198 AVF High Thigh * * Low Thigh >254 >254 Calf >254 >254 Ankle DP >254 >254 Ankle PT >254 >254 Great Toe 158 Amputation ANKLE/BRACHIAL INDEX: RIGHT LEFT Dorsalis Pedis Non-Compressible Non-Compressible Posterior Tibial Non-Compressible Non-Compressible TOE/BRACHIAL INDEX: RIGHT LEFT 0.80 Amputation PRELIMINARY FINDINGS: 1. Doppler waveforms are normal, bilaterally. 2. Unable to obtain ankle brachial index due to non-compressible arteries. 3. 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 PHYSICIAN INTERPRETATION: 1. Bilateral lower extremity arterial exam demonstrates no evidence of occlusive disease. There is evidence of arterial calcinosis. Signed 12/07/2017 03:57 PM Catracho Weaver MD Performing Organization Address City/State/Zipcode Phone Number [facility] [address] [place] [address] * Partial thromboplastin time, activated (12/07/2017 7:00 AM) PTT 32.6 23.0 - 36.0 sec [facility] DEPARTMENT OF Comment: PATHOLOGY AND PTT therapeutic range for GENOMIC MEDICINE unfractionated heparin is 61.0-112.0 seconds which corresponds to Anti-Xa 0.3-0.7 U/ml. Specimen Blood Performing Organization Address [facility] [place] [address] PATHOLOGY AND Veronica [facility] * Prothrombin time with INR (12/07/2017 7:00 AM) Prothrombin time 14.9 12.0 - 15.0 sec [facility] DEPARTMENT OF PATHOLOGY AND Veronica MEDICINE INR 1.2 [facility] DEPARTMENT OF Comment: PATHOLOGY AND The International Normalized [facility] Ratio (INR) is a therapeutic monitoring tool for patients who are stable on oral anticoagulant therapy. An INR of 2.0-3.0 is suggested for deep vein thrombosis/pulmonary embolism. Specimen Blood Performing Organization Address [facility] [place] [address] PATHOLOGY AND Veronica [facility] * B natriuretic peptide (12/07/2017 7:00 AM) BNP 282 (H) 0 - 100 pg/mL [facility] DEPARTMENT OF PATHOLOGY AND Veronica MEDICINE Specimen Blood Performing Organization Address [facility] [place] [place] [address] PATHOLOGY AND Veronica [facility] * Hemoglobin A1c (12/07/2017 7:00 AM) Hemoglobin A1C 8.0 (H) 4.0 - 5.6 % [facility] DEPARTMENT OF Comment: PATHOLOGY AND HbA1c cutoffs for diagnosing [facility] diabetes: 4.0% - 5.6%=normal 5.7% - 6.4%=increased risk for diabetes (prediabetes) >=6.5%=diabetes Goals for glycemic control (ADA 2016) < 7.0% Target for non adults with diabetes. More or less stringent targets may be appropriate for individual patients. <7.5% Target for Children and adolescents with type 1 diabetes. Specimen Blood Performing Organization Address [facility] [place] [place] [address] PATHOLOGY AND Veronica [facility] * US Renal Transplant Doppler (12/07/2017 6:31 AM) Narrative Performed At EXAMINATION: US RENAL TRANSPLANT DOPPLER [facility] CLINICAL HISTORY: Abnormal labs clinical exam TECHNIQUE: Sonographic images of the renal transplant were obtained as well as grayscale, color Doppler, and waveform analysis of the renal transplant vessels. COMPARISON: 03/08/2017 FINDINGS: The right iliac fossa renal transplant is normal in size and echogenicity. There is no evidence of renal mass, calculi, or hydronephrosis. There is mild pelviectasis. There are no perinephric fluid collections. The transplant renal artery and vein are patent with normal flow direction and waveform. Resistive index of the main renal artery 0.78. The urinary bladder is unremarkable. IMPRESSION: 1. Mild pelviectasis. 2. No sonographic evidence of transplant renal artery stenosis. 3. Otherwise unremarkable renal transplant ultrasound. [id number] Procedure Note Interface, Radiology Results Incoming - 12/07/2017 8:19 AM [employer] ATTENDANT EXAMINATION: US RENAL TRANSPLANT DOPPLER CLINICAL HISTORY: Abnormal labs clinical exam TECHNIQUE: Sonographic images of the renal transplant were obtained as well as grayscale, color Doppler, and waveform analysis of the renal transplant vessels. COMPARISON: 03/08/2017 FINDINGS: The right iliac fossa renal transplant is normal in size and echogenicity. There is no evidence of renal mass, calculi, or hydronephrosis. There is mild pelviectasis. There are no perinephric fluid collections. The transplant renal artery and vein are patent with normal flow direction and waveform. Resistive index of the main renal artery 0.78. The urinary bladder is unremarkable. IMPRESSION: 1. Mild pelviectasis. 2. No sonographic evidence of transplant renal artery stenosis. 3. Otherwise unremarkable renal transplant ultrasound. [id number] Performing Organization Address City/State/Zipcode Phone Number [email or web address] [address] [place] [address] * Vitamin D 25 hydroxy level (12/07/2017 4:00 AM) Vitamin D, 25-hydroxy 9.3 (L) 30.0 - 150.0 ng/mL [facility] DEPARTMENT OF Comment: PATHOLOGY AND This assay reports the sum of GENOMIC MEDICINE 25-hydroxy vitamin D3 and 25-hydroxy vitamin D2. Reference range: 0-17 years: Deficiency: less than 20ng/mL Optimum level: greater than or equal to 20 ng/mL. 18 years and older: Deficiency: less than 20ng/mL Insufficiency: 20-29 ng/mL Optimum Level: 30-80 ng/mL The assay reportable range is 3.4 155.9 ng/mL. Levels higher than 150 ng/mL may be associated with toxicity. If toxicity is clinically suspected and the reported result is >155.9 ng/mL,contact lab for alternative methods to obtain a definitive level. If separate quantitation of 25-hydroxy vitamin D3 and 25-hydroxy vitamin D2 is needed, please contact lab for alternative methods. Specimen Blood Performing Organization Address City/State/Zipcode Phone Number [facility] [place] [address] PATHOLOGY AND [facility] * Uric acid level (12/07/2017 4:00 AM) Uric acid 3.9 3.4 - 7.0 mg/dL [facility] DEPARTMENT OF PATHOLOGY AND GENOMIC MEDICINE Specimen Blood Performing Organization Address City/[facility] Phone Number [facility] [place] [address] PATHOLOGY AND [facility] * Thyroid stimulating hormone (12/07/2017 4:00 AM) TSH 1.43 0.27 - 4.20 uIU/mL [facility] DEPARTMENT OF PATHOLOGY AND GENOMIC MEDICINE Specimen Blood Performing Organization Address City/[facility] Phone Number [facility] [place] [address] PATHOLOGY AND [facility] * T4, free (12/07/2017 4:00 AM) T4, free 1.4 0.9 - 1.7 ng/dL [facility] DEPARTMENT OF PATHOLOGY AND GENOMIC MEDICINE Specimen Blood Performing Organization Address [facility] Phone Number [facility] [place] [address] [facility] * Lactic acid level (12/07/2017 4:00 AM) Lactic acid 1.7 0.5 - 2.2 mmol/L [facility] DEPARTMENT OF PATHOLOGY AND GENOMIC MEDICINE Specimen Blood Performing Organization Address City/[facility] Phone Number [facility] [place] [address] PATHOLOGY AND [facility] * Creatine kinase, total (CPK) (12/07/2017 4:00 AM) Creatine kinase 20 (L) 39 - 308 U/L [facility] DEPARTMENT OF PATHOLOGY AND GENOMIC MEDICINE Specimen Blood Performing Organization Address City/[facility] [place] [address] PATHOLOGY AND [facility] * Bilirubin direct (12/07/2017 4:00 AM) Bilirubin direct 0.8 (H) 0.0 - 0.3 mg/dL [facility] DEPARTMENT OF PATHOLOGY AND GENOMIC MEDICINE Specimen Blood Performing Organization Address City/[facility] Phone Number [facility] [address] [place] [address] PATHOLOGY AND GENOMIC MEDICINE * Lipid panel (12/07/2017 4:00 AM) Cholesterol 100 <200 mg/dL [facility] DEPARTMENT OF PATHOLOGY AND GENOMIC MEDICINE Triglycerides 151 (H) <150 mg/dL [facility] DEPARTMENT OF PATHOLOGY AND GENOMIC MEDICINE HDL cholesterol 20 (L) >40 mg/dL [facility] DEPARTMENT OF PATHOLOGY AND GENOMIC MEDICINE LDL cholesterol 37Comment: Result obtained by <100 mg/dL [facility] DEPARTMENT OF direct LDL measurement PATHOLOGY AND GENOMIC MEDICINE Lipid panel SeeBelow [facility] DEPARTMENT OF interpretation Comment: PATHOLOGY AND Total Cholesterol GENOMIC MEDICINE (mg/dL) <200 Desirable 200-239 Borderline -high >=240 High Triglycerides (mg/dL) <150 Normal 150-199 Borderline -high 200-499 High >=500 Very high HDL Cholesterol (mg/dL) <40 Low (male) <40 Low (female) LDL Cholesterol (mg/dL) <100 Optimal 100-129 Near or above optimal 130-159 Borderline -high 160-189 High >=190 Very high Risk Catergories that modify LDL goals. Risk Catergories LDL goal (mg/dL) CHD and CHD risk equivalent <100 (10-year risk >20%) Multiple (2+) risk factors <130 (10-year risk=<20%) 0-1 risk factors <160 (<10-year risk) Defining levels of lipids in metabolic syndrome Triglycerides >=150 mg/dL HDL Cholesterol Men <40 mg/dL Women <40 mg/dL Non-HDL cholesterol is a second target for therapy in persons with high triglycerides (>=200 mg/dL) Specimen Blood Performing Organization Address City/State/Zipcode Phone Number [facility] DEPARTMENT OF [address] [place] [address] PATHOLOGY AND GENOMIC MEDICINE * Troponin (12/07/2017 2:10 AM) Only the most recent of 2 results within the time period is included. Troponin <0.30 0.00 - 0.30 ng/mL [facility] DEPARTMENT OF Comment: PATHOLOGY AND 0.30 - 1.49 GENOMIC MEDICINE ng/ml May indicate increased risk of acute coronary syndrome. >=1.5 ng/ml Consistent with acute myocardial infarction. The diagnostic value of a single normal or non-diagnostic result is questionable. Serial samples at 2-6 hour intervals are required to rule out acute myocardial injury. Specimen Plasma specimen Performing Organization Address [facility] Phone Number [facility] [place] [address] PATHOLOGY AND GENOMIC MEDICINE * Lactic acid level, SEPSIS - Now and repeat 2x every 3 hours (12/07/2017 1:09 AM) Only the most recent of 2 results within the time period is included. Lactic acid 1.8 0.5 - 2.2 mmol/L [facility] DEPARTMENT OF PATHOLOGY AND GENOMIC MEDICINE Specimen Blood Performing Organization Address [facility] Number [facility] [place] [address] PATHOLOGY AND GENOMIC MEDICINE * Aerobic culture (12/07/2017) Aerobic culture isolate Streptococcus group B [facility] DEPARTMENT OF Few PATHOLOGY AND (A) GENOMIC MEDICINE Comment: Specimen Information Specimen Source: Wound Specimen Site: Heel Specimen Wound - Heel Performing Organization Address [facility] Number [facility] [place] [address] PATHOLOGY AND GENOMIC MEDICINE * Gram stain (12/07/2017) Gram stain isolate No WBC's [facility] DEPARTMENT OF Rare Gram negative rods PATHOLOGY AND Comment: GENOMIC MEDICINE Specimen Information Specimen Source: Wound Specimen Site: Heel Specimen Wound - Heel Performing Organization Address [facility] Number [facility] [place] [address] PATHOLOGY AND GENOMIC MEDICINE * Anaerobic culture (12/07/2017) Anaerobic culture isolate Prevotella bivia [facility] DEPARTMENT OF The performance PATHOLOGY AND characteristics of this assay GENOMIC MEDICINE on this isolate were validated by the Microbiology Laboratory at [facility]. This source has not been approved by the U.S. Food and Drug Administration. The results are not intended to be used as the sole means for clinical diagnosis or patient management. The Microbiology Laboratory is authorized under the clinical Laboratory Improvement Amendments of 1988 (CLIA-88) to perform high complexity testing. (A) Comment: Specimen Information Specimen Source: Wound Specimen Site: Heel Specimen Wound - Heel Performing Organization Address [facility] Phone Number [facility] DEPARTMENT OF [address] [place] [address] PATHOLOGY AND GENOMIC MEDICINE * ECG 12 lead (12/06/2017 11:52 PM) Ventricular rate 77 [facility] MUSE Atrial rate 77 [facility] MUSE FL interval 152 [facility]USE QRSD interval 80 [facility] MUSE QT interval 408 [facility] MUSE QTC interval 461 [facility] MUSE P axis 1 34 [facility] MUSE QRS axis 1 104 [facility] MUSE T wave axis 25 [facility] MUSE EKG impression Normal sinus rhythm-Rightward [facility] MUSE axis-Anteroseptal infarct , age undetermined-Abnormal ECG-In automated comparison with ECG of 01-JUN-2014 08:00,-Questionable change in QRS axis-T wave inversion no longer evident in Lateral leads- Performing Organization Address [facility] Hospital[facility] Phone Number [facility] MUSE [address] [place] [address] * XR Foot 3+ Vw Right (12/06/2017 11:39 PM) Narrative Performed At EXAMINATION: XR FOOT 3 VW RIGHT [facility] CLINICAL HISTORY: OSTEOMYELITIS SUSPECTED FOOT SWELLING NO ARTHROPATHY NO ULCER DIABETIC PT COMPARISON: None. IMPRESSION: No acute fractures or dislocations. Visualized joint spaces are anatomic. Mild degenerative changes of the midfoot. Bridging callus is seen between the second and third metatarsals, compatible with sequelae of previous fractures. Extensive atherosclerotic vascular calcifications are seen. [facility]-[id number] Procedure Note Hm Interface, Radiology Results Incoming - 12/07/2017 12:01 AM [employer] ATTENDANT EXAMINATION: XR FOOT 3 VW RIGHT CLINICAL HISTORY: OSTEOMYELITIS SUSPECTED FOOT SWELLING NO ARTHROPATHY NO ULCER DIABETIC PT COMPARISON: None. IMPRESSION: No acute fractures or dislocations. Visualized joint spaces are anatomic. Mild degenerative changes of the midfoot. Bridging callus is seen between the second and third metatarsals, compatible with sequelae of previous fractures. Extensive atherosclerotic vascular calcifications are seen. [facility]-[id number] Performing Organization Address [facility]/Zipcode Phone Number [facility] [address] [place] [address] * XR Chest 1 Vw Portable (12/06/2017 10:55 PM) Narrative Performed At Examination: XR CHEST 1 VW PORTABLE [facility] Clinical history: Cough Comparison: 12/24/2015 Impression: 1. Hazy opacity within the left base is concerning for left lower lobe pneumonia, possibly with trace pleural effusion. Follow-up nonportable inspiratory PA and lateral imaging is recommended when feasible. 2. The right lung is clear. Vasculature is within normal limits. 3. Sternal wires remain. [facility]-[id number] Procedure Note [facility], Radiology Results Incoming - 12/06/2017 11:02 PM [employer] ATTENDANT Examination: XR CHEST 1 VW PORTABLE Clinical history: Cough Comparison: 12/24/2015 Impression: 1. Hazy opacity within the left base is concerning for left lower lobe pneumonia, possibly with trace pleural effusion. Follow-up nonportable inspiratory PA and lateral imaging is recommended when feasible. 2. The right lung is clear. Vasculature is within normal limits. 3. Sternal wires remain. [facility]-[id number] Performing Organization Address City/[facility]/Zipcode Phone Number [facility] [address] [place] [address] * Blood culture, aerobic & anaerobic (12/06/2017 10:50 PM) Only the most recent of 2 results within the time period is included. Blood culture isolate No growth after 5 days of [facility] DEPARTMENT OF incubation. PATHOLOGY AND Comment: GENOMIC MEDICINE Specimen Information Specimen Source: Blood Specimen Site: Hand, right Specimen Blood - Hand, right Performing Organization Address City/[facility]/Zipcode Phone Number [facility] DEPARTMENT OF [address] [place] [address] PATHOLOGY AND GENOMIC MEDICINE after 07/15/2017 Insurance Payer Benefit Subscriber ID Type Phone Address Plan / Group MEDICARE MEDICARE xxxxxxxxxx Medicare [place], [place] PART A AND B
--- OUTSIDE RECORDS SUMMARY | 2018-08-08 07:07 | XMS REPORT ---
Author Author [facility] Address Unknown Phone Unavailable Care Team Providers Care Fancy Wire Drawer Name Role Phone JAYLA SOTO Unavailable Unavailable Problems This patient has no known problems. Allergies, Adverse Reactions, Alerts This patient has no known allergies or adverse reactions. Medications This patient has no known medications. Results Test Description Test Time Test Comments Text Results Atomic Results Result Comments CHEST 2 VIEWS 2018-07-22 10:50:00 [facility] [address] [address] Patient Name: ANEL GARNICA MR #: [id number] : 1965 Age/Sex: 53/M Req #: [id number] Adm Physician: JAYLA SOTO MD Ordered by: JOSE VASQUEZ MD Report #: [id number] Location: MED/SURG3 Room/Bed: [facility] _ Procedure: [id number] DX/CHEST 2 VIEWS Exam Date: Exam Time: 0945 REPORT STATUS: Signed PROCEDURE: Frontal and lateral views of the chest. COMPARISON: Chest radiograph 07/16/18. INDICATIONS: PNEUMONIA FINDINGS: Lines/ tubes: None. Lungs: Low lung volumes, with likely mild pulmonary interstitial edema. Left retrocardiac opacity is present. Patchy right basilar opacity, likely atelectasis. Pleura: There is no pleural effusion or pneumothorax. Heart and mediastinum: The cardiomediastinal silhouette is unchanged. Status post CABG. Bones: No acute bony abnormality. IMPRESSION: Left retrocardiac opacity may represent atelectasis. Superimposed pneumonia is possible in the appropriate clinical setting. Low lung volumes, with likely mild pulmonary interstitial edema. Status post CABG. Dictated by: MARIAM PURVIS M.D. on at 10:50 Electronically approved by: MARIAM PURVIS M.D. on 2017 at 10:50 Dictated By: MARIAM PURVIS MD 1050 Transcribed By: JAQUELINE on 07/22/18 1050 COPY TO: JOSE VASQUEZ MD IR CONSULT 2018-07-18 14:04:00 [address] [place] [address] Patient Name: ANEL GARNICA MR #: [id number] : 1965 Age/Sex: 53/M Req #: [id number] Adm Physician: JAYLA SOTO MD Ordered by: JAYLA SOTO MD Report #: [id number] Location: MED/SURG3 Room/Bed: [facility] Procedure: [id number] DX/IR CONSULT Exam Date: Exam Time: REPORT STATUS: Signed EXAM: Bilateral chest ultrasound and IR consult for drainage/biopsy INDICATION: Query left sided pleural effusion COMPARISON: CT Chest 07/16/18 TECHNIQUE: Focused ultrasound was performed of the bilateral chest to evaluate for presence of pleural effusion. FINDINGS: Focused ultrasound was performed of the bilateral chest, which demonstrated no evidence of pleural effusion. IMPRESSION: No sonographic evidence of pleural effusions bilaterally PLAN: Note is made of IR consult from referring team requesting drainage of biopsy of opacity noted in the left lower lobe on prior noncontrast CT. Given absence of pleural effusion, no drainage can be performed. Furthermore, prior CT is suggestive of an area of atelectasis / sequela of prior pleural effusion (complex pleural effusion was noted on abdominal CT report from 06/30/2010), rather than mass. Therefore, no lung biopsy was performed at this time. A contrast enhanced CT may be considered for further evaluation. Signed by: Dr. Mariam Purvis MD on 07/18/2018 2:12 PM Dictated By: MARIAM PURVIS MD 11 Transcribed By: SUMIT on 07/18/181411 COPY TO: JAYLA SOTO MD US CHEST (INCL MEDIASTINUM) 2018-07-18 14:04:00 [place] [address] Patient Name: ANEL GARNICA MR #: [id number] : 1965 Age/Sex: 53/M Req #: [id number] Adm Physician: JAYLA SOTO MD Ordered by: MARIAM PURVIS MD Report #: [id number] Location: MED/SURG3 Room/Bed : [facility] Procedure: [id number] US/US CHEST (INCL MEDIASTINUM) Exam Date: 07/18/18 Exam Time: 1002 REPORT STATUS: Signed EXAM: Bilateral chest ultrasound and IR consult for drainage/biopsy INDICATION: Query left sided pleural effusion COMPARISON: CT Chest 07/16/18 TECHNIQUE: Focused ultrasound was performed of the bilateral chest to evaluate for presence of pleural effusion. FINDINGS: Focused ultrasound was performed of the bilateral chest, which demonstrated no evidence of pleural effusion. IMPRESSION: No sonographic evidence of pleural effusions bilaterally PLAN: Note is made of IR consult from referring team requesting drainage of biopsy of opacity noted in the left lower lobe on prior noncontrast CT. Given absence of pleural effusion, no drainage can be performed. Furthermore, prior CT is suggestive of an area of atelectasis / sequela of prior pleural effusion ( complex pleural effusion was noted on abdominal CT report from 06/30/2010), rather than mass. Therefore, no lung biopsy was performed at this time. A contrast enhanced CT may be considered for further evaluation. Signed by: Dr. Mariam Purvis MD on 07/18/2018 2:12 PM Dictated By: MARIAM PURVIS MD 1412 Transcribed By: SUMIT on 07/18/18 1412 COPY TO: MARIAM PURVIS MD CT CHEST WO 2018-07-16 16:04:00 [place] [address] Patient Name: ANEL GARNICA MR #: [id number] : 1965 Age/Sex: 53/M Req #: [id number] Adm Physician: JAYLA SOTO MD Ordered by: JAIRON SRIVASTAVA MD Report #: [id number] Location: MED/SURG3 Room/Bed: [facility] Procedure: [id number] CT/CT CHEST WO Exam Date: 07/16 Exam Time: 1500 REPORT STATUS: Signed EXAMINATION: CT scan of the chest without contrast. TECHNIQUE: Spiral CT images of the chest were performed from the lung apices to the level of the adrenal glands. No intravenous contrast was administered per physician's request. Coronal and sagittal reformatted images were obtained. COMPARISON : Portable chest 07/16/2018 CLINICAL HISTORY:Pneumonia, sepsis, UTI DISCUSSION: ABSENCE OF INTRAVENOUS CONTRAST DECREASES SENSITIVITY FOR DETECTION OF FOCAL LESIONS AND VASCULAR PATHOLOGY. LINES/TUBES: None. LUNGS AND AIRWAYS: Tree-in-bud opacities are noted in the anterolateral right upper lobe (series 3, image 32), right lower lobe (series 3, image 61). Atelectatic changes in the left lower lobe (series 3, image 16), with associated mild bronchiectasis (series 3, image 80), which converge on the lenticular shaped subpleural density described below. Associated posterior displacement of the left major fissure Calcified granuloma in the superior segment of the right lower lobe (series 3, image 43). No focal consolidation or pulmonary nodules. Airways are clear, without bronchial lesions. PLEURA: No pneumothorax. Approximately 10.9 x 4.7 x 9.4 cm soft tissue density lenticular shaped subpleural density in the left lower lung, with associated linear and scattered dystrophic calcifications (series 2, image 96). HEART AND MEDIASTINUM: Thyroid is unremarkable. Mild cardiomegaly. Extensive atherosclerotic calcification of the coronary arteries , thoracic aorta, aortic valve sent to lesser degree mitral annulus. Aorta is nonaneurysmal. Main pulmonary artery measures 3.0 cm. LYMPH NODES: There is no mediastinal, hilar or axillary lymphadenopathy. ABDOMEN: Limited unenhanced views of the upper abdomen show no abnormality within the visualized liver, spleen and bowel. The adrenal glands are not imaged. Extensive atherosclerotic calcification of the aortic branches BONES AND SOFT TISSUES: No aggressive lytic lesions. Multilevel degenerative disc changes in the thoracic spine. Midline sternotomy wires. IMPRESSION: 1. Tree-in-bud opacities in the anterolateral right upper lobe and right lower lobe, suggesting endobronchial spread of infection (including mycobacterial disease). No consolidation. 2. Left lower lung pleural-based density with associated atelectatic changes in the left lower lobe and mild bronchiectasis , with converging airways and vessels, are suggestive of round atelectasis and /or sequela of prior empyema or effusion. Further evaluation is limited by the lack of intravenous contrast. Signed by: Dr. Althea Narvaez M.D. on 07/16/2018 4:24 PM Dictated By: ALTHEA NARVAEZ MD [id number] Transcribed By: SUMIT on COPY TO: JAIRON SRIVASTAVA MD CHEST SINGLE (PORTABLE) 2018-07-16 01:20:00 [facility] [address] [place] [address] Patient Name: ANEL GARNICA MR #: [id number] : 1965 Age/Sex: 53/M Req #: [id number] Adm Physician: JAYLA SOTO MD Ordered by: JUVENAL MCCLURE DRIVER SUPERVISOR Report #: [id number] Location: [facility] Room/ Bed: [address] [place] [address] Procedure: [id number] DX/CHEST SINGLE ( PORTABLE) Exam Date: 07/16/18 Exam Time: 0020 REPORT STATUS: Signed EXAMINATION: CHEST SINGLE (PORTABLE) INDICATION: Fever COMPARISON: None FINDINGS: TUBES and LINES: None. LUNGS: Lungs are not well inflated. Bibasilar opacities are most likely atelectasis. There is no evidence of pneumonia or pulmonary edema. PLEURA: No pleural effusion or pneumothorax. HEART AND MEDIASTINUM: Cardiac size is mildly enlarged. The patient is status post CABG procedure. BONES AND SOFT TISSUES: No acute osseous lesion. Soft tissues are unremarkable. UPPER ABDOMEN: No free air under the diaphragm. IMPRESSION: Low lung volumes without evidence of confluent airspace disease. Signed by: Dr. Eliazar Murillo M.D. on 2017 1:26 AM Dictated By: ELIAZAR CHRISTIE MD 5 Transcribed By: SUMIT on 125 COPY TO: JUVENAL MCCLURE NP CT ABDOMEN/PELVIS WO 2018-07-15 23:49:00 [place] [address] Patient Name: ANEL GARNICA MR #: [id number] : 1965 Age/Sex: 53/M Req #: [id number] [facility] Physician: Ordered by: JUVENAL MCCLURE NP Report #: [id number] Location: ER Room/Bed: ____ Procedure: [id number] CT/CT ABDOMEN/PELVIS WO Exam Date: 07/15/18 Exam Time: 2211 REPORT STATUS: Signed EXAM: CT Abdomen and Pelvis WITHOUT contrast INDICATION: Renal stone COMPARISON: None. TECHNIQUE: Abdomen and pelvis were scanned utilizing a multidetector helical scanner from the lung base to the pubic symphysis without administration of IV contrast. Absence of intravenous contrast decreases sensitivity for detection of focal lesions and vascular pathology. Coronal and sagittal reformations were obtained. Stone protocol is performed. IV CONTRAST: None. ORAL CONTRAST: Water RADIATION DOSE: Total DLP: 593.94 mGy*cm Estimated effective dose : (DLP x 0.015 x size factor) mSv COMPLICATIONS: None FINDINGS: LINES and TUBES: None. LOWER THORAX: There is evidence of tree-in-bud nodularity predominantly involving the right lower and right middle lobe with miliary pattern. There is a left lower lobe round atelectasis associated with a pleural base low density oval masslike process measuring 9.9 x 4.4 x 8.1 cm best seen on series 3, image 31 and series 401, image 70 compatible with sequela of prior hemothorax or higher thorax. Multiple calcifications are noted peripherally. HEPATOBILIARY: No focal hepatic lesions. No biliary ductal dilation. GALLBLADDER: Cholecystectomy. SPLEEN: There is evidence of splenomegaly PANCREAS: No focal masses or ductal dilatation. ADRENALS: No adrenal nodules KIDNEYS/URETERS: No hydronephrosis. No cystic or solid mass lesions. No stones. Chronic renal atrophy compatible with medical renal disease. 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 GI TRACT: No abnormal distention, wall thickening, or evidence of bowel obstruction. Appendix is normal. PELVIC ORGANS/ BLADDER: The urinary bladder is decompressed with thickened feliciano.. Correlate for urine production LYMPH NODES: No lymphadenopathy. VESSELS: There is severe atherosclerotic disease in the aorta and major arterial branches. PERITONEUM / RETROPERITONEUM: No free air or fluid. BONES: Unremarkable. SOFT TISSUES: Unremarkable. IMPRESSION: 1. No evidence of nephrolithiasis or hydronephrosis. 2. The calcifications noted in the [place] kidneys are all vascular in origin. 3. Mild splenomegaly. 4. 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 Isolation is recommended until active infection is excluded. Differential diagnosis may include atypical infections such as TB, or fungi. 5. Left lower lobe pleural base density compatible with sequela of prior empyema or hemothorax. Signed by: Dr. Eliazar Murillo M.D. on 07/15/2018 11:54 PM Dictated By: ELIAZAR CHRISTIE MD [id number] Transcribed By: SUMIT on 07/15/18 9389 COPY TO: JUVENAL MCCLURE NP
== END 2018-07-25 16:53 | disposition home or self-care (01) | DRG 853 ==
LOC: ER 17:20 → ERHOLD 07-16 00:24 → MED/SURG2 07-16 02:15 → MED/SURG3 07-16 06:26
PROVIDERS: ADMIT Internal Medicine; ATTEND Internal Medicine
PROC: 0B9D8ZX Drainage of Right Middle Lung Lobe, Via Natural or Artificial Opening Endoscopic, Diagnostic (ICD-10-PCS; principal; 2018-07-17 14:00)
DX: A41.9 Sepsis, unspecified organism (principal); J18.9 Pneumonia, unspecified organism; N39.0 Urinary tract infection, site not specified; Z94.0 Kidney transplant status; R65.20 Severe sepsis without septic shock; I12.9 Hypertensive chronic kidney disease with stage 1 through stage 4 chronic kidney disease, or unspecified chronic kidney disease; I73.9 Peripheral vascular disease, unspecified; E11.22 Type 2 diabetes mellitus with diabetic chronic kidney disease; N18.3 Chronic kidney disease, stage 3 (moderate); E83.42 Hypomagnesemia; E11.42 Type 2 diabetes mellitus with diabetic polyneuropathy; E11.51 Type 2 diabetes mellitus with diabetic peripheral angiopathy without gangrene; Z79.899 Other long term (current) drug therapy; I25.10 Atherosclerotic heart disease of native coronary artery without angina pectoris; Z51.89 Encounter for other specified aftercare; Z98.84 Bariatric surgery status; E87.6 Hypokalemia; E78.5 Hyperlipidemia, unspecified; Z79.4 Long term (current) use of insulin
CPT/HCPCS: 36415; 71045; 71046; 71250; 74176; 74470; 76604; 80048; 80053; 81001; 82550; 82553; 82948; 83605; 83735; 84484; 85025; 85610; 85730; 86738; 87040; 87071; 87086; 87102; 87116; 87186; 87205; 87206; 87278; 87335; 94640; 96367; 96372; 99284; J0171; J0696; J1940; J2001; J2250; J2405; J2543; J3370; J3480; J7030; J7040; J7050; J7507; J7512

== ENCOUNTER 2020-06-25 16:29 | Emergency (ER) | payer MEDICARE ==
[~2020-06-25] VITALS: Ht 365.8 cm; Wt 91.6 kg
[~2020-06-25 16:29] MED LIST changes: +APIDRA SOL100 UNIT/1; +CIPRO500 MG PO; +DOXYCYCLINE MON50 MG PO; +LANTUS 3ML100 UNITS/ SC; +TACROLIMUS1 MG PO; +ZOFRAN ODT4 MG PO
--- NOTE | 2020-06-25 17:05 | Emergency Department Note ---
History of Present Illnes History of Present Illness Chief Complaint: Extremity Trauma/Pain History of Present Illness This is a 55 year old male June BROKE LEFT WRIST IN A FALL. PATIENT DID NOT SEEK ANY TREATMENT UNTILL THE 20ST AT [facility] WHERE IT WAS XRAYED AND FRACTURE WAS CONFIRMED. THEY PLACED A TEMPORARY SPLINT AND PATIENT TOOK IT OFF STATING, "I WANT A REAL ONE". PATIENT STATES HE HAD AN APPT. NEXT WEEK BUT DID NOT WANT TO WAIT THAT LONG. HE IS WEARING A SPLINT HE BOUGHT FROM STORE. NOTED SWELLING TO HAND, POSITIVE PULSES. Historian: Patient Arrival Mode: Car Additional Treatment AGENCY OPERATOR: NONE Lumber Scaler Required: No Onset (how long ago): day(s) (11) Location: LEFT WRIST Quality: SWELLING/MILD PAIN Radiation: Reports non-radiation Severity: mild Onset quality: sudden Timing of current episode: constant Progression: improving Chronicity: new Context: Reports trauma/injury (FOOSH 06/14/20) Relieving factors: none Exacerbating factors: none Associated symptoms: Reports denies other symptoms Treatments prior to arrival: none Past Medical/Family History Physician Review I have reviewed the patient's past medical and family history. Any updates have been documented here. Past Medical History Recent Fever: No Clinical Suspicion of Infectio: No New/Unexplained Change in Ment: No Past Medical History: Hypertension, Diabetes, ESRD Other Medical History: kidney transplant Past Surgical History: CABG Other Surgery: Kidney transplant,Right left big toe amputation, left fistula Social History Smoking Cessation: Never Smoker Alcohol Use: None Any Illegal Drug Use: No TB Exposure/Symptoms: No Physically hurt or threatened: No Family History Family history of heart diseas: No Other Last Tetanus: 2010 Any Pre-Existing Lines (PICC,: No Review of Systems Review of Systems Constitutional: Reports no symptoms EENTM: Reports no symptoms Cardiovascular: Reports no symptoms Respiratory: Reports no symptoms Gastrointestinal: Reports no symptoms Genitourinary: Reports no symptoms Musculoskeletal: Reports as per HPI Integumentary: Reports no symptoms Neurological: Reports no symptoms Psychological: Reports no symptoms Endocrine: Reports no symptoms Hematological/Lymphatic: Reports no symptoms Physical Exam Related Data Allergies: Coded Allergies: No Known Drug Allergies (Verified Allergy, Mild, 06/07/10) Triage Vital Signs Vital Signs Date Time Temp Pulse Resp B/P (MAP) Pulse Ox O2 Delivery O2 Flow Rate FiO2 06/25/20 16:50 98.1 74 18 142/80 98 Room Air Vital signs reviewed: Yes Physical Exam CONSTITUTIONAL Constitutional: Present well-developed, Present well-nourished HENT HENT: Present normocephalic, Present atraumatic, Present oropharynx clear/moist, Present nose normal HENT L/R: Present left ext ear normal, Present right ext ear normal EYES Eyes: Reports PERRL, Reports conjunctivae normal NECK Neck: Present ROM normal PULMONARY Pulmonary: Present effort normal, Present breath sounds normal CARDIOVASCULAR Cardiovascular: Present regular rhythm, Present heart sounds normal, Present capillary refill normal, Present normal rate GASTROINTESTINAL Abdominal: Present soft, Present nontender, Present bowel sounds normal GENITOURINARY Genitourinary: Present exam deferred SKIN Skin: Present warm, Present dry MUSCULOSKELETAL Musculoskeletal: Present tenderness, Present swelling (LEFT WRIST/HAND) NEUROLOGICAL Neurological: Present alert, Present oriented x 3, Present no gross motor or sensory deficits PSYCHOLOGICAL Psychological: Present mood/affect normal, Present judgement normal Assessment & Plan Medical Decision Making MDM NO EMERGENCY, WILL PLACE SPLINT, DC Reassessment Reassessment F/U PCP AND DR ADAM HOPKINS Assessment & Plan Final Impression: (1) Wrist fracture, left Depart Disposition: HOME, SELF-CARE Last Vital Signs Date Time Temp Pulse Resp B/P (MAP) Pulse Ox O2 Delivery O2 Flow Rate FiO2 06/25/20 16:50 98.1 74 18 142/80 98 Room Air Home Meds Reported Medications Ciprofloxacin Hcl (CIPRO) 500 Mg Tablet, 500 MG PO Q12H, #30 TAB 07/25/18 Insulin Glargine (LANTUS 3ML PEN) 100 Units/1 Ml Inj, 13 SC HS 07/15/18 Insulin Glulisine (APIDRA SOLOSTAR) 100 Unit/1 Ml Insuln.pen 07/15/18 Tacrolimus (TACROLIMUS) 1 Mg Capsule, 1 MG PO HS, #30 CAP 07/15/18 Tacrolimus (TACROLIMUS) 1 Mg Capsule, 0.5 MG PO DAILY, #30 CAP 07/15/18 Doxycycline Monohydrate (DOXYCYCLINE MONOHYDRATE) 50 Mg Capsule, 100 MG PO BID 07/15/18 Ondansetron (ZOFRAN ODT) 4 Mg Tab.rapdis, 4 MG PO BID, TAB 07/15/18 Alendronate Sodium (ALENDRONATE SODIUM) 70 Mg Tablet, 70 MG PO WEEKLY 06/21/15 [Prednisone] No Conflict Check, 5 MG PO DAILY 06/21/15 Fludrocortisone Acetate (FLUDROCORTISONE ACETATE) 0.1 Mg Tab, 0.1 MG PO BID, TAB 06/21/15 Calcitriol (CALCITRIOL) 0.25 Mcg Capsule, 0.25 MG PO DAILY, #30 TAB 06/21/15 Finasteride (FINASTERIDE) 5 Mg Tablet, 5 MG PO DAILY, #30 TAB 06/21/15 Mycophenolate Mofetil (MYCOPHENOLATE MOFETIL) 250 Mg Capsule, 500 MG PO Q12H, CAP 06/21/15 Nateglinide (Starlix) 120 Mg Tablet, 120 MG PO before meals 03/02/12 Amlodipine Besylate/Benazepril (Lotrel 10-20 Mg Capsule) 1 Each Capsule, 1 CAP PO daily 03/02/12 Loperamide Hcl (Loperamide) 2 Mg Tablet, 2 MG PO prn 03/02/12 Carvedilol (Carvedilol) 3.125 Mg Tablet, 12.5 MG PO twice daily 03/02/12 Aspirin (Asa) 81 Mg Tab, 81 MG PO daily 03/02/12 Clopidogrel Bisulfate (Plavix) 75 Mg Tablet, 75 MG PO daily 03/02/12 Sevelamer Carbonate (Renvela) 800 Mg Tablet, 800 MG PO tid 03/02/12 Lisinopril (Lisinopril) 20 Mg Tablet, 20 MG PO daily 03/02/12 JESSICA TRUONG MD Jun 25, 2020 17:05
--- OUTSIDE RECORDS SUMMARY | 2020-06-25 18:23 | XMS REPORT | Continuity of Care Document ---
Author Author [facility] t Organization [facility] Address [address] [place] [address] Phone Unavailable Care Team Providers Care Property Maintenance Supervisor Name Role Phone AP SOTO MD PCP Juan Carlos RN, Jayne Attphys Unavailable AP SOTO Attphys Unavailable AP SOTO Admphys Unavailable Payers Payer Name Policy Type Policy Number Effective Date Expiration Date S conor MEDICAREMEDICARE PART A AND Bxxxxxxxxxxx/11/2007-[place] 2008 00:00:00 Mike Zarcoist Medicare A & B [id number] 2008 00:00:00 [facility] Problems Condition Name Condition Details Condition Category Status Onset Date Resolution Date Last Treatment Date Treating Clinician Comments Source Skin ulcer of right heel with fat layer exposed Skin u lcer of right heel with fat layer exposed Disease Active 2017-12-06 00:00:00 Mike Torres History of kidney transplant History of kidney transplant Disease Active 2016-11-20 00:00:00 Mike Torres Immunosuppressive management encounter following kidne y transplant Immunosuppressive management encounter following kidney transplant Disease Active 2016-11-20 00:00:00 Norbert Torres Kidney replaced by transplant Kidney replaced by transplant Disease Active 2016-04-11 00:00:00 Mike Torres Pneumonia Pneumonia Problem Active [facility] Sepsis Sepsis Problem Active [facility] Urinary tract infection UTI (urinary tract infection) Problem Active [facility] Allergies, Adverse Reactions, Alerts Allergy Name Allergy Type Status Severity Reaction(s) Onset Date Inacti ve Date Treating Clinician Comments Source No Known Allergies DA Active U 2020-06-24 00:00:00 [facility] No Known Allergies DA Active U 2011-07-04 00:00:00 [facility] Social History Social Habit Start Date Stop Date Quantity Comments Source Sex Assigned At Oscar shields Religion Alcohol intake 2019-03-23 00:00:00 2019-03-23 00:00:00 Current non-drinker of alcohol (finding) Mike Torres Alcohol Comment 2017-03-08 00:00:00 2017-03-08 00:00:00 "Drink s ocially before [place] drinking more than 10 years ago" Mike [facility]i [facility] Smoking Status Start Date Stop Date Source Never smoker Mike wong Medications Ordered Medication Name Filled Medication Name Start Date Stop Da te Current Medication? 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 Mike Torres mycophenolate (CELLCEPT) 500 mg tablet 2019-12-17 00:00:00 Yes prevention of kidney transplant rejection 1000mg Q.5D Take 2 ta blets (1,000 mg total) by mouth 2 (two) times a day for 180 days .prevent kidney transplant rejection. Mike Torres predniSONE (DELTASONE) 5 mg tablet 2019-12-17 00:00:00 Yes prevention of kidney transplant rejection 5mg QD Take 1 table t (5 mg total) by mouth daily for 180 days .prevent kidney transplant rejection. Mike Torres tacrolimus (PROGRAF) 1 MG capsule 2019-06-11 00:00:00 Yes Transplanted kidney 1mg Q.5D Take 1 capsule (1 mg total) by mouth 2 (two) times a day. ICD 10 Z94.0; Kidney Txp; Date of Txp : 12/05/13; Jayne WEST [phone] Mike Torres amLODIPine (NORVASC) 5 mg tablet 2018-12-12 00:00:00 Yes 5mg QD Take 1 tablet (5 mg total) by mouth daily. Fátima Torres mycophenolate (CELLCEPT) 500 mg tablet 7 00:00:00 2019-12-17 00:00:00 No prevention of kidney transplant rejection 1000m g Q.5D Take 2 tablets (1,000 mg total) by mouth 2 (two) times a day. Mike Torres predniSONE (DELTASONE) 5 mg tablet 2018-12-12 00:00:00 00:00:00 No prevention of kidney transplant rejection 5mg QD Take 1 tablet (5 mg total) by mouth daily. Mike Torres ergocalciferol (VITAMIN D2) 50,000 unit capsule 2018-12-12 00:00:00 2019-12-17 00:00:00 No vitamin D deficiency (high dose therapy) 25973F Q7D Take 1 capsule (50,000 Units total) by mouth once a week. Mike Torres metoprolol succinate XL (TOPROL-XL) 25 mg 24 hr tablet 2018-12-12 00:00:00 2019-12-12 23:59:00 No 12.5mg QD Take 0.5 tablets (12.5 mg total) by mouth daily. Mike Torres insulin GLARGINE (LANTUS) 100 unit/mL injection (vial) 2018-12-10 14:13:24 Yes 20U QD Inject 20 Units under the skin daily. Mike Torres insulin glulisine (APIDRA) 100 unit/mL injection 2018-12-10 14:13:24 Yes [id number] Inject under the skin 3 (three) times a day before meals. Mike Torres Alendronate Sodium 70 Mg Tablet Alendronate Sodium 70 Mg Tablet Yes [address] [facility] Amlodipine Besylate/Benazepril (Lotrel 10-20 Mg Capsul e) 1 Each Capsule Amlodipine Besylate/Benazepril (Lotrel 10-20 Mg Capsule) 1 Each Capsule Yes 1 Daily [facility] Aspirin (Asa) 81 Mg Tab Aspirin (Asa) 81 Mg Tab Yes [address] [facility] Calcitriol 0.25 Mcg Capsule Calcitriol 0.25 Mcg Capsule Yes .25 Daily [facility] Carvedilol 3.125 Mg Tablet Carvedilol 3.125 Mg Tablet Yes 12.5 Twice Daily [facility] Ciprofloxacin Hcl (Cipro) 500 Mg Tablet Ciprofloxacin Hcl (C ipro) 500 Mg Tablet Yes 500 Every 12 Hours [facility] Clopidogrel Bisulfate (Plavix) 75 Mg Tablet Clopidogre l Bisulfate (Plavix) 75 Mg Tablet Yes [address] [facility] Doxycycline Monohydrate 50 Mg Capsule Doxycycline Monohydrate 50 Mg Capsule Yes 100 Twice A Day [facility] Finasteride 5 Mg Tablet Finasteride 5 Mg Tablet Yes [address] [facility] Fludrocortisone Acetate 0.1 Mg Tab Fludrocortisone Acetate 0.1 Mg Tab Yes .[address] [facility] Insulin Glargine (Lantus 3ML Pen) 100 Units/1 Ml Inj I nsulin Glargine (Lantus 3ML Pen) 100 Units/1 Ml Inj Yes [address] [facility] Insulin Glulisine (Apidra Solostar) 100 Unit/1 Ml Insu ln.pen Insulin Glulisine (Apidra Solostar) 100 Unit/[address] [facility] Lisinopril 20 Mg Tablet Lisinopril 20 Mg Tablet Yes [address] [facility] Loperamide Hcl (Loperamide) 2 Mg Tablet Loperamide Hcl (Kita ramide) 2 Mg Tablet Yes 2 Prn [facility] Mycophenolate Mofetil 250 Mg Capsule Mycophenolate Mofetil 250 Mg C apsule Yes 500 Every 12 Hours [facility] Nateglinide (Starlix) 120 Mg Tablet Nateglinide (Starlix) 120 Mg Tabl et Yes [address] [facility] Ondansetron (Zofran Odt) 4 Mg Tab.rapdis Ondansetron ( Zofran Odt) 4 Mg Tab.rapdis Yes [address] [facility] Prednisone Prednisone Yes 5 Daily [facility] Sevelamer Carbonate (Renvela) 800 Mg Tablet Sevelamer Carbonate (Renvela) 800 Mg Tablet Yes [address] [facility] Tacrolimus 1 Mg Capsule Tacrolimus 1 Mg Capsule Yes .[address] [facility] Tacrolimus 1 Mg Capsule Tacrolimus 1 Mg Capsule Yes [address] [facility] Procedures Procedure Date / Time Performed Performing Clinician [facility] e X-ray of chest, two views 2018-07-22 00:00:00 JOSE VASQUEZ [facility] Ultrasound of chest including mediastinum 2018-07-18 00:00:[address] [facility] Bronchoscopy with biopsy 2018-07-17 00:00:00 JAIRON SRIVASTAVA [facility] Computed tomography of chest without contrast 2018-07-16 00: 00:[address] [facility] CT of abdomen and pelvis without contrast 2018-07-15 00:00:[address] [facility] Plan of Care Planned Activity Planned Date Details Comments Source Future Scheduled Test 2020-08-05 00:00:00 INFLUENZA VACCINE [code = INFLUENZA VACCINE] [facility] Future Scheduled Test 2015 00:00:00 COLONOSCOPY SCREEN ING [code = COLONOSCOPY SCREENING] [facility] Future Scheduled Test 2015 00:00:00 SHINGLES VACCINES (#1) [code = SHINGLES VACCINES (#1)] [facility] Encounters Start Date/Time End Date/Time Encounter Type Admission Type [facility] Care Department Encounter ID Source 2018-07-16 00:24:00 2018-07-25 16:53:00 Discharged Inpatient 1 [facility] [id number] [facility] Results Test Description Test Time Test Comments Results Result Comments Source - XR WRIST 3 + V LT 2020-06-24 13:42:00 Name: ANEL GARNICA [facility] : 1965 Age/S:55 /M [address] [facility] Unit#:[id number] Loc: [place] [address] Phys: Madina Bello NP Dis Date: PHONE #: [phone] Status: PRE ER FAX #: [phone] Exam Date: 06/24/2020 Reason: injury EXAMS: CPT CODE: [id number] XR WRIST 3 + V LT [address] REASON FOR EXAM: injury EXAM ORDER DATE: 06/24/2020 1:24 PM Ordering: Madina Bello NP Location:[facility] PROCEDURE: - XR WRIST 3 + V LT FINDINGS: 3 views of the left wrist were obtained. The osseous structures are unremarkable in size and shape. The joint spaces are maintained. Acute minimally displaced, comminuted fracture of the distal ulna. Minimal lateral displacement of the fracture fragment. The radiocarpal joint space is intact. Scattered atherosclerotic calcifications. IMPRESSION: Acute displaced comminuted fracture of the distal ulna. at 1342 Reported and signed by: Jose Marcelino M.D. CC: Madina Bello NP; Ap Soto MD Technologist: Paloma Lee RT(R)(CT) Trnscrpt Data: 06/24/2020 (1342) t.SDR.DKH1 Orig Print D/T: S: 06/24/2020 (3102) PAGE 1 Signed Report - SP FLUORO GUID CTRL ACC DEV 2018-11-24 21:48:00 Name: ANEL GARNICA [facility] SP : 1965 Age/S: 53 / M [address] [facility] Unit #: [id number] Loc: [place] [address] Phys: Anthony Sharpe MD Acct: [id number] Dis Date: Status: [facility] PHONE #: [phone] Exam Date: 11/22/2018 0840 FAX #: [phone] Reason: EXAMS: CPT CODE: [id number] SP FLUORO GUID CTRL ACC DEV 68731 Fluoro Time: 1.3 DAP (Gy m2): 0 Air Kerma (mGy): 0.15 EXAM: Removal of a tunneled central line with fluoroscopic guidance; INFORMATION: History of UTI; patient has completed intravenous antibiotic therapy. TECHNIQUE AND FINDINGS: Informed consent was obtained and the patient was placed supine on the procedure table. Initial fluoroscopic imaging showed the tip of a right IJ tunneled central line positioned in the SVC. The patient's skin in the right neck and upper chest region was prepped and draped in the usual sterile fashion. The tunneled catheter was mobilized by blunt dissection with a hemostat and was then removed. Final fluoroscopic imaging confirmed complete catheter removal. No complications. IMPRESSION: Successful removal of a tunneled central line with fluoroscopic guidance. Fluoroscopy Time: 1.3 sec CAK: 0.15 mGy at 2148 Reported and signed by: Anthony Sharpe M.D. CC: Ap Soto MD; Anthony Sharpe MD Technologist: Bella Browne RT(R) Trnscb Date/Time: 11/24/2018 (2147) t.SDR.GRW Orig Print D/T: S: 11/24/2018 (2645) PAGE 1 Signed Report - XR CHEST 1 V 2018-11-22 09:20:00 FAX: Ap Tavares MD [phone] Martin: B St: REG FAX: Anthony Conklin [phone] Name: ANEL GARNICA [facility] : 1965 Age/S: 53/M [address] [facility] Unit #: [id number] Loc: [place] [address] Phys: Anthony Sharpe MD Acct: [id number] Dis Date: Status: [facility] PHONE #: [phone] Exam Date: 11/22/2018914 FAX #: [phone] Reason: REMOVAL OF CENTRAL LINE EXAMS: CPT CODE: [id number] XR CHEST 1 V 42977 HISTORY: Central line removal. COMPARISON: October 26, 2018. Right catheter has been normal. No pneumothorax is noted. Small left effusion with subsegmental atelectasis. No definite infiltrates. Cardiomegaly. IMPRESSION: No pneumothorax after right central line removal. Small left effusion with subsegmental atelectasis without definite infiltrates or congestion. at 0920 Reported and signed by: Bronson Monge M.D. CC: Ap Soot MD; Anthony Sharpe MD Technologist: ANEL HAWLEY RT(R) Trnscrd Date/Time/By: 11/22/2018 (919) : By: [email or web address] Orig Print D/T: S: 11/22/2018 (5255) PAGE 1 Signed Report Bedside Glucose 2018-07-25 16:31:00 Test Item Bedside Glucose (test code = 96689-3) 261 70-120 H Meter ID: [id number]. David's Medical CenterMagnesium Level 2018-07-24 06:20:00* Test Item Value Reference Range Interpretation Comments Magnesium Level (test code = 56084-5) 1.3 1.3-2.1 [facility]odium Wsbey3956-42-94 05:52:00* Test Item Value Reference Range Interpretation Comments Sodium Level (test code = 2951-2) 141 136-145 [facility] CenterPotassium Koxbj5544-28-33 05:52:00* Test Item Value Reference Range Interpretation Comments Potassium Level (test code = 2823-3) 3.5 3.5-5.1 [facility] CenterChloride Lxlbe6149-65-22 05:52:00* Test Item Value Reference Range Interpretation Comments Chloride Level (test code = 2075-0) 102 98-107 [facility] CenterCarbon Dioxide Utzri1806-80-22 05:52:00* Test Item Value Reference Range Interpretation Comments Carbon Dioxide Level (test code = 2028-9) 30 22-[address] [facility] CenterAnion Hpn8958-55-36 05:52:00* Test Item Value Reference Range Interpretation Comments Anion Gap (test code = 06942-4) 12.5 8-16 [facility] CenterBlood Urea Ezeddbfo1249-58-94 05:52:00* Test Item Value Reference Range Interpretation Comments Blood Urea Nitrogen (test code = 3094-0) 20 7-26 [facility] CenterCreatinine2018-09-19 05:52:00* Test Item Value Reference Range Interpretation Comments Creatinine (test code = 2160-0) 1.12 0.72-1.25 [facility] CenterBUN/Creatinine Wuycz8746-10-02 05:52:00* Test Item Value Reference Range Interpretation Comments BUN/Creatinine Ratio (test code = 3097-3) 18 6-25 [facility] CenterEstimat Glomerular Filtration Rate 2018-07-24 05:52:00* Test Item Value Reference Range Interpretation Comments Estimat Glomerular Filtration Rate (test code = 973163248) 60- >60 Ranges were taken from the National Kidney Disease Education Program and the [facility] literature.Reference ranges:60 or greater: Sqkvtu55-71 ( for 3 consecutive months): Chronic kidney disease 15 or less: Kidney failureSt. David's Medical CenterGlucose Vdtty2429-57-44 05:52:00* Test Item Value Reference Range Interpretation Comments Glucose Level (test code = HNV8781) 233 74-[address] [facility] CenterCalcium Liibq3508-66-52 05:52:00* Test Item Value Reference Range Interpretation Comments Calcium Level (test code = 85353-2) 9.4 8.4-10.2 [facility] CenterTotal Snkfhrosz6633-21-07 05:52:00* Test Item Value Reference Range Interpretation Comments Total Bilirubin (test code = 1975-2) 0.4 0.2-1.2 [facility] CenterAspartate Amino Transf (AST/SGOT) 2018-07-24 05:52:00* Test Item Value Reference Range Interpretation Comments Aspartate Amino Transf (AST/SGOT) (test code = Aspartate Amino Transf (AST/SGOT)) 13 5-34 [facility] CenterAlanine Aminotransferase (ALT/SGPT) 2018-07-24 05:52:00* Test Item Value Reference Range Interpretation Comments Alanine Aminotransferase (ALT/SGPT) (test code = 1742-6) 13 0-55 [facility] CenterTotal Usbhkrr2220-63-10 05:52:00* Test Item Value Reference Range Interpretation Comments Total Protein (test code = 2885-2) 5.4 6.5-8.[address] [facility] CenterAlbumin2018-09-19 05:52:00* Test Item Value Reference Range Interpretation Comments Albumin (test code = 1751-7) 2.9 3.5-5.[address] [facility] CenterGlobulin2018-09-19 05:52:00* Test Item Value Reference Range Interpretation Comments Globulin (test code = 01745-6) 2.5 2.3-3.5 [facility] CenterAlbumin/Globulin Lfqjj8974-10-40 05:52:00 * Test Item Value Reference Range Interpretation Comments Albumin/Globulin Ratio (test code = 1759-0) 1.2 0.8-2.0 [facility] CenterAlkaline Wsgdynmhokv6042-13-17 05:52:00* Test Item Value Reference Range Interpretation Comments Alkaline Phosphatase (test code = 6768-6) 63 40-150 [facility] CenterWhite Blood Tscfe7459-71-03 05:29:00* Test Item Value Reference Range Interpretation Comments White Blood Count (test code = 6690-2) 4.65 4.8-10.[address] [facility] CenterRed Blood Evwnj5686-74-03 05:29:00* Test Item Value Reference Range Interpretation Comments Red Blood Count (test code = 789-8) 3.64 4.3-5.[address] [facility] CenterHemoglobin2018-09-19 05:29:00* Test Item Value Reference Range Interpretation Comments Hemoglobin (test code = 50528-9) 11.3 14.0-18.[address] [facility] CenterHematocrit2018-09-19 05:29:00* Test Item Value Reference Range Interpretation Comments Hematocrit (test code = 4544-3) 33.6 38.2-49.[address] [facility] CenterMean Corpuscular Zcngon2967-88-30 05:29:00* Test Item Value Reference Range Interpretation Comments Mean Corpuscular Volume (test code = 787-2) 92.3 81-99 [facility] CenterMean Corpuscular Lrvwoveqra6983-03-15 05:29:00* Test Item Value Reference Range Interpretation Comments Mean Corpuscular Hemoglobin (test code = 785-6) 31.0 28-32 [facility] Medical CenterMean Corpuscular Hemoglobin Concent 2018-07-24 05:29:00* Test Item Value Reference Range Interpretation Comments Mean Corpuscular Hemoglobin Concent (test code = 786-4) 33.6 31-35 [facility] CenterRed Cell Distribution Iftjv9798-09-20 05:29:00* Test Item Value Reference Range Interpretation Comments Red Cell Distribution Width (test code = 68718-8) 13.3 11.7 -14.4 [facility] CenterPlatelet Boywt8678-37-89 05:29:00* Test Item Value Reference Range Interpretation Comments Platelet Count (test code = 777-3) 140 140-360 [facility] CenterNeutrophils (%) (Auto)2018-07-24 05:29:00 * Test Item Value Reference Range Interpretation Comments Neutrophils (%) (Auto) (test code = 65490-0) 60.7 38.7-80.0 [facility] CenterLymphocytes (%) (Auto)2018-07-24 05:29:00 * Test Item Value Reference Range Interpretation Comments Lymphocytes (%) (Auto) (test code = 736-9) 23.0 18.0-39.1 [facility] CenterMonocytes (%) (Auto)2018-07-24 05:29:00* Test Item Value Reference Range Interpretation Comments Monocytes (%) (Auto) (test code = 5905-5) 12.7 4.4-11.[address] [facility] CenterEosinophils (%) (Auto)2018-07-24 05:29:00 * Test Item Value Reference Range Interpretation Comments Eosinophils (%) (Auto) (test code = 713-8) 2.8 0.0-6.0 [facility] CenterBasophils (%) (Auto)2018-07-24 05:29:00* Test Item Value Reference Range Interpretation Comments Basophils (%) (Auto) (test code = 706-2) 0.4 0.0-1.0 [facility] Medical CenterIM GRANULOCYTES %2018-07-24 05:29:00* Test Item Value Reference Range Interpretation Comments IM GRANULOCYTES % (test code = IM GRANULOCYTES %) 0.4 0.0- 1.0 [facility] CenterNeutrophils # (Auto)2018-07-24 05:29:00* Test Item Value Reference Range Interpretation Comments Neutrophils # (Auto) (test code = 751-8) 2.8 2.1-6.9 [facility] CenterLymphocytes # (Auto)2018-07-24 05:29:00* Test Item Value Reference Range Interpretation Comments Lymphocytes # (Auto) (test code = 73453-6) 1.1 1.0-3.2 [facility] CenterMonocytes # (Auto)2018-07-24 05:29:00* Test Item Value Reference Range Interpretation Comments Monocytes # (Auto) (test code = 742-7) 0.6 0.2-0.8 [facility] CenterEosinophils # (Auto)2018-07-24 05:29:00* Test Item Value Reference Range Interpretation Comments Eosinophils # (Auto) (test code = 711-2) 0.1 0.0-0.4 [facility] CenterBasophils # (Auto)2018-07-24 05:29:00* Test Item Value Reference Range Interpretation Comments Basophils # (Auto) (test code = 704-7) 0.0 0.0-0.1 [facility] Medical CenterAbsolute Immature Granulocyte (auto 2018-07-24 05:29:00* Test Item Value Reference Range Interpretation Comments Absolute Immature Granulocyte (auto (patricio t code = Absolute Immature Granulocyte (auto) 0.02 0-0.1 [facility] Medical CenterLegionella Direct FA (LAB)2018-07-23 08:12:00* Test Item Value Reference Range Interpretation Comments Legionella Direct FA (LAB) (test code = 72840-2) Negative Negat ameena Performed at: [facility] Lab[address] [id number] Non Food Receiving Clerk: Reinier Ariza MD, Phone: [phone] range: None dete ctedCHI [facility] AllianceCHEST 2 ZWAYK0552-07-82 10:50:00 [place] [address] Patient Name: ANEL GARNICA MR #: [id number] DO B: 1965 Age/Sex: 53/M Req #: [id number] Adm Physici an: AP SOTO MD Ordered by: JOSE VASQUEZ MD Report #: [id number] Locati on: MED/SURG3 Room/Bed: [facility] Procedure: [id number] DX /CHEST 2 VIEWS Exam Date: 07/22/18 Exam Time: 944 REPORT STATUS: Signed PROCEDURE: Frontal and lateral views of the ches t. COMPARISON: Chest radiograph 07/16/18. INDICATIONS: PNEUMONIA FINDINGS: Lines/tubes: None. Lungs: Low lung volumes, with lik anuja mild pulmonary interstitial edema. Left retrocardiac opacity is present. Patchy right basilar opacity, likely atelectasis. Pleura: There is no pleural effusion or pneumothorax. Heart and mediastinum: The cardiomedia stinal silhouette is unchanged. Status post CABG. Bones: No acute bony abnormality. IMPRESSION: Left retrocardiac opacity may represent atele ctasis. Superimposed pneumonia is possible in the appropriate clinical settin g. Low lung volumes, with likely mild pulmonary interstitial edema. Statu s post CABG. Dictated by: MARIAM PAN M.D. on 07/22/2018 at 10 :50 Electronically approved by: MARIAM PAN M.D. on 07/22/2018 at 10:50 Dictated By: MARIAM PAN MD 1050 Transcribed By: JAQUELINE on 07/22/18 1050 COPY TO: JOSE LONDONO MD Blood Lvdzlml4988-59-25 05:14:00* Test Item Value Reference Range Interpretation Comments Blood Culture (test code = 34076378) NO GROWTH AFTER 5 DAYS, FINAL REPORT [facility] CenterMycoplasma pneumoniae IgG Antibody 2018-07-20 03:34:00* Test Item Value Reference Range Interpretation Comments Mycoplasma pneumoniae IgG Antibody (test code = 5255-5) 557 0-99 H Negative: <100 Indeterminate: 100 - 320 Positive: > 320The reference interval established is intended as abaseline only. Values > 100 may indicate a recentinfection with Mycoplasma pneumoniae and need to beconf irmed either by a positive IgM result and/or anadditional specimen drawn 2-4 wee ks later showing asignificant increase in antibody levels.[facility] CenterMycoplasma pneumoniae IgM Ldzmwzdt4122-58-50 03:34:00* Test Item Value Reference Range Interpretation Comments Mycoplasma pneumoniae IgM Antibody (test code = 5256-3) -770 0-769 Negative <770Clinically significant amount of M. pneumoniae antibodynot detected. Low Positive 770 - 950M. pneumoniae specific IgM presumptively detected. Itis recommended that another sample be collected 1-2weeks later to assure reactivity. Positive >950Highly significant amount of M. pneumoniae specificIgM antibody detected.Performed at: [address] [id number] Director: Reinier Ariza MD, Phone: [phone] [facility] IR GPXNJWL4122-55-62 14:04:00 [place] [address] [place] [address] Patient Name: ANEL GARNICA MR #: [id number] : 1965 Age/Sex: 53/M Req #: [id number] Adm Physician: AP SOTO MD Ordered by: AP SOTO MD Report #: [id number] Location: MED/SURG3 Room/Bed: [facility] Procedure: [id number] D X/IR CONSULT Exam Date: Exam Time: REPORT ST ATUS: Signed EXAM: Bilateral chest ultrasound and IR consult for drainage/bio psy INDICATION: Query left sided pleural effusion COMPARISON: CT Chest 07/16/18 TECHNIQUE: Focused ultrasound was performed of the bilateral chest to evaluate for presence of pleural effusion. FINDINGS: Focused u ltrasound was performed of the bilateral chest, which demonstrated no evidence of pleural effusion. IMPRESSION: No sonographic evidence of pleural eff usions bilaterally PLAN: Note is made of IR consult from referring team r equesting drainage of biopsy of opacity noted in the left lower lobe on prior noncontrast CT. Given absence of pleural effusion, no drainage can be performe d. Furthermore, prior CT is suggestive of an area of atelectasis / sequela of prior pleural effusion (complex pleural effusion was noted on abdominal CT rep ort from 06/30/2010), rather than mass. Therefore, no lung biopsy was performed at this time. A contrast enhanced CT may be considered for further evaluation. Signed by: Dr. Mariam Pan MD on 07/18/2018 2:12 PM Dictated By: Jayme PAN MD 1412 Transcri bed By: SUMIT on 07/18/18 1412 COPY TO: AP SOTO MD US CHEST (INCL MEDIASTINUM)2018-07-18 14:04:00 [place] [address] Patient Name: ANEL GARNICA MR #: [id number] : 1965 Age/Sex: 53/M Req #: [id number] Adm Physician: AP SOTO MD Ordered by: MARIAM PAN MD Report #: [id number] Location: MED/SURG3 Room/Bed: [facility] Procedure: [id number] US/ US CHEST (INCL MEDIASTINUM) Exam Date: 07/18/18 Exam Time: 1002 REPORT STATUS: Signed EXAM: Bilateral chest ultrasound and IR consult for drainage/biopsy INDICATION: Query left sided pleural effusio n COMPARISON: CT Chest 07/16/18 TECHNIQUE: Focused ultrasound was perfo rmed of the bilateral chest to evaluate for presence of pleural effusion. FINDINGS: Focused ultrasound was performed of the bilateral chest, which demonstrated no evidence of pleural effusion. IMPRESSION: No sonograp hic evidence of pleural effusions bilaterally PLAN: Note is made of IR co nsult from referring team requesting drainage of biopsy of opacity noted in th e left lower lobe on prior noncontrast CT. Given absence of pleural effusion, no drainage can be performed. Furthermore, prior CT is suggestive of an area o f atelectasis / sequela of prior pleural effusion (complex pleural effusion wa s noted on abdominal CT report from 06/30/2010), rather than mass. Therefore, n o lung biopsy was performed at this time. A contrast enhanced CT may be consid ered for further evaluation. Signed by: Dr. Mariam Pan MD on 07/18/2018 2: 12 PM Dictated By: MARIAM PAN MD 141 Transcribed By: SUMIT on 07/18/18 141 COPY TO: MARIAM PAN MD Blood [id number] 08:50:00* Test Item Value Reference Range Interpretation Comments Blood Culture (test code = 600-7) Organism: KLEBSIELLA PNEUMONIAE-E [facility] [id number] 08:17:00* Test Item Value Reference Range Interpretation Comments Urine Culture (test code = 630-4) Organism: KLEBSIELLA PNEUMONIAE-E [facility] [id number] 16:04:00 [facility] [address] [place] [address] Patient Name: ANEL GARNICA MR #: [id number] : 1965 Age/Sex: 53/M Req #: [id number] Adm Physician: AP SOTO MD Ordered by: JAIRON SRIVASTAVA MD Report #: [id number] Lo cation: MED/SURG3 Room/Bed: [facility] Procedure: [id number]/CT CHEST WO Exam Date: 07/16/18 Exam Time: 1500 REPORT STATUS: Signed EXAMINATION: CT scan of the chest without contr ast. TECHNIQUE: Spiral CT images of the chest were performed from the lung apices to the level of the adrenal glands. No intravenous contrast was admini stered per physician's request. Coronal and sagittal reformatted images were o btained. COMPARISON: Portable chest 07/16/2018 CLINICAL HISTORY:Pneumon ia, sepsis, UTI DISCUSSION: ABSENCE OF INTRAVENOUS CONTRAST DECREASES SEN SITIVITY FOR DETECTION OF FOCAL LESIONS AND VASCULAR PATHOLOGY. LINES/TUB ES: None. LUNGS AND AIRWAYS: Tree-in-bud opacities are noted in the anter olateral right upper lobe (series 3, image 32), right lower lobe (series 3, im age 61). Atelectatic changes in the left lower lobe (series 3, image 16), with associated mild bronchiectasis (series 3, image 80), which converge on the lenticular shaped subpleural density described below. Associated posterior dis placement of the left major fissure Calcified granuloma in the superior segmen t of the right lower lobe (series 3, image 43). No focal consolidation or pu lmonary nodules. Airways are clear, without bronchial lesions. PLEURA: No pneumothorax. Approximately 10.9 x 4.7 x 9.4 cm soft tissue density lenticu lar shaped subpleural density in the left lower lung, with associated linear a nd scattered dystrophic calcifications (series 2, image 96). HEART AND ME DIASTINUM: Thyroid is unremarkable. Mild cardiomegaly. Extensive atherosclero tic calcification of the coronary arteries, thoracic aorta, aortic valve sent to lesser degree mitral annulus. Aorta is nonaneurysmal. Main pulmonary artery measures 3.0 cm. LYMPH NODES: There is no mediastinal, hilar or axillary lymphadenopathy. ABDOMEN: Limited unenhanced views of the upper abdomen dayna w no abnormality within the visualized liver, spleen and bowel. The adrenal gl ands are not imaged. Extensive atherosclerotic calcification of the aortic bra nches BONES AND SOFT TISSUES: No aggressive lytic lesions. Multilevel degen erative disc changes in the thoracic spine. Midline sternotomy wires. IMP RESSION: 1. Tree-in-bud opacities in the anterolateral right upper lobe and r ight lower lobe, suggesting endobronchial spread of infection (including mycob acterial disease). No consolidation. 2. Left lower lung pleural-based den sity with associated atelectatic changes in the left lower lobe and mild bronc hiectasis, with converging airways and vessels, are suggestive of round atelec tasis and/or sequela of prior empyema or effusion. Further evaluation is limit ed by the lack of intravenous contrast. Signed by: Bárbara Alejandro on 07/16/2018 4:24 PM Dictated By: ALTHEA GUIDRY MD Electronically S igned By: ALTHEA GUIDRY MD on 07/16/184 Transcribed By: SUMIT on 1624 COPY TO: JAIRON SRIVASTAVA MD Lactic Acid [id number] 05:49:00* Test Item Value Reference Range Interpretation Comments Lactic Acid Level (test code = Lactic Acid Level) 10.9 4.5- 19.8 [facility] SINGLE (PORTABLE)2018-07-16 01:20:00 [facility] [address] [place] [address] Patient Name: ANEL GARNICA MR #: [id number] : 1965 Age/Sex: 53/M Req #: [id number] Adm Physician: AP SOTO MD Ordered by: JUVENAL MCCLURE [employer]ING [employer] OPERATOR Report #: [id number] Location: [facility] Room/Bed: [place] [address] Procedure: [id number] DX/CHEST SINGLE (PORTABLE) Exam Date: 07/16/18 E xam Time: 0020 REPORT STATUS: Signed EXAMINATION: CHEST SINGLE (PORTAB LE) INDICATION: Fever COMPARISON: None FINDI NGS: TUBES and LINES: None. LUNGS: Lungs are not well inflated. Bibasi lar opacities are most likely atelectasis. There is no evidence of pneumonia or pulmonary edema. PLEURA: No pleural effusion or pneumothorax. HEA RT AND MEDIASTINUM: Cardiac size is mildly enlarged. The patient is status po st CABG procedure. BONES AND SOFT TISSUES: No acute osseous lesion. Soft tissues are unremarkable. UPPER ABDOMEN: No free air under the diaphragm. IMPRESSION: Low lung volumes without evidence of confluent airspace disease. Signed by: Dr. Eliazar Murillo M.D. on 07/16/2018 1:26 AM D ictated By: ELIAZAR CHRISTIE MD 5 Transcribed By: SUMIT on 07/16/18125 COPY TO: JUVENAL MCCLURE NP CT ABDOMEN/PELVIS [id number] 23:49:00 [place] [address] Patient Name: ANEL GARNICA MR #: [id number] : 1965 Age/Sex: 53/M Req #: [id number] Adm Physician: Ordered by: JUVENAL MCCLURE NP Report #: [id number] Location: [facility]/Bed: Procedure: [id number] CT/CT ABDOMEN/PELVIS WO Exam Date: 07/15/18 Exam Time: [address] ATUS: Signed EXAM: CT Abdomen and Pelvis WITHOUT contrast INDICATION: Erich al stone COMPARISON: None. TECHNIQUE: Abdomen and pelvis were scanned utiliz ing a multidetector helical scanner from the lung base to the pubic symphysis without administration of IV contrast. Absence of intravenous contrast decreas es sensitivity for detection of focal lesions and vascular pathology. Coronal and sagittal reformations were obtained. Stone protocol is performed. IV CONTRAST: None. ORAL CONTRAST: Water RADIAT ION DOSE: Total DLP: 593.94 mGy*cm Estimated effective dose: (DLP x 0.015 x size factor) mSv COMPLICATIONS: None FINDINGS: LINES and TUBES: None. LOWER THORAX: There is evidence of tree-in-bud no dularity predominantly involving the right lower and right middle lobe with mi liary pattern. There is a left lower lobe round atelectasis associated with a pleural base low density oval masslike process measuring 9.9 x 4.[address] seen on series 3, image 31 and series 401, image 70 compatible with sequela of prior hemothorax or higher thorax. Multiple calcifications are noted perip herally. HEPATOBILIARY: No focal hepatic lesions. No biliary ductal di lation. GALLBLADDER: Cholecystectomy. SPLEEN: There is evidence of splenomegaly PANCREAS: No focal masses or ductal dilatation. ADR ENALS: No adrenal nodules KIDNEYS/URETERS: No hydronephrosis. No cysti c or solid mass lesions. No stones. Chronic renal atrophy compatible with med ical renal disease. 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 GI TRACT: No abnormal distention, wall thickening, or eviden ce of bowel obstruction. Appendix is normal. PELVIC ORGANS/BLADDER: The urinary bladder is decompressed with thickened feliciano.. Correlate for urine production LYMPH NODES: No lymphadenopathy. VESSELS: There is severe atherosclerotic disease in the aorta and major arterial branches. PERITO NEUM / RETROPERITONEUM: No free air or fluid. BONES: Unremarkable. SOF T TISSUES: Unremarkable. IMPRESSION: 1. No evidence of neph rolithiasis or hydronephrosis. 2. The calcifications noted in the [place] are all vascular in origin. 3. Mild splenomegaly. 4. Findings in the c hest are compatible with atypical infection with miliary pattern. Isolation is recommended until active infection is excluded. Differential diagnosis may in clude atypical infections such as TB, or fungi. 5. Left lower lobe pleural ba se density compatible with sequela of prior empyema or hemothorax. Signed by: Dr. Eliazar Murillo M.D. on 07/15/2018 11:54 PM Dictated By: ELIAZAR LAURA MD 9533 Transcribed By: SUMIT on 07/15/18 5897 COPY TO: JUVENAL MCCLURE NP Creatine Kinase [id number] 19:05:00* Test Item Value Reference Range Interpretation Comments Creatine Kinase MB (test code = 50133-2) 1.50 0-5.0 [facility] [id number] 19:05:00* Test Item Value Reference Range Interpretation Comments Troponin I (test code = TEN0986) 0.036 0-0.300 [facility] [id number] 18:54:00* Test Item Value Reference Range Interpretation Comments Urine WBC (test code = 5821-4) 11-20 0-[address] [facility] [id number] 18:54:00* Test Item Value Reference Range Interpretation Comments Urine RBC (test code = 95764-1) 6-10 0-[address] [facility] [id number] 18:54:00* Test Item Value Reference Range Interpretation Comments Urine Bacteria (test code = 61851-7) FEW NONE [facility] Epithelial [id number] 18:54:00 * Test Item Value Reference Range Interpretation Comments Urine Epithelial Cells (test code = 53058-8) NONE NONE [facility] [id number] 18:54:00* Test Item Value Reference Range Interpretation Comments Creatine Kinase (test code = 2157-6) 31 30-200 [facility] [id number] 18:48:00* Test Item Value Reference Range Interpretation Comments Urine Color (test code = 5778-6) YELLOW YELLOW [facility] [id number] 18:48:00* Test Item Value Reference Range Interpretation Comments Urine Clarity (test code = 19702-7) SL CLOUDY CLEAR [facility] Specific [id number] 18:48:00 * Test Item Value Reference Range Interpretation Comments Urine Specific [place] (test code = 5811-5) 1.025 1.010-1.[address] [facility] [id number] 18:48:00* Test Item Value Reference Range Interpretation Comments Urine pH (test code = 31680-0) 5 5-7 [facility] Leukocyte [id number] 18:48:00* Test Item Value Reference Range Interpretation Comments Urine Leukocyte Esterase (test code = 5799-2) TRACE NEGATIVE [facility] [id number] 18:48:00* Test Item Value Reference Range Interpretation Comments Urine Nitrite (test code = 83068-0) NEGATIVE NEGATIVE [facility] [id number] 18:48:00* Test Item Value Reference Range Interpretation Comments Urine Protein (test code = 5804-0) TRACE NEGATIVE H [facility] Glucose (UA)2018-07-15 18:48:00* Test Item Value Reference Range Interpretation Comments Urine Glucose (UA) (test code = 2349-9) 1+ NEGATIVE [facility] [id number] 18:48:00* Test Item Value Reference Range Interpretation Comments Urine Ketones (test code = 27677-8) NEGATIVE NEGATIVE [facility] Decnjytcrlam0607-94-73 18:48:00* Test Item Value Reference Range Interpretation Comments Urine Urobilinogen (test code = 49365-1) 0.2 0.2-1 [facility] [id number] 18:48:00* Test Item Value Reference Range Interpretation Comments Urine Bilirubin (test code = 1978-6) NEGATIVE NEGATIVE [facility] [id number] 18:48:00* Test Item Value Reference Range Interpretation Comments Urine Blood (test code = 97666-6) 1+ NEGATIVE H [facility] Center[facility]th[facility]bin [id number] 18:42:00* Test Item Value Reference Range Interpretation Comments Prothrombin Time (test code = 5902-2) 15.5 11.9-14.[address] [facility] CenterProthromb Time International Ratio 2018-07-15 18:42:00* Test Item Value Reference Range Interpretation Comments Prothromb Time International Ratio (test code = 6301-6) 1.33 Oral Anticoagulant Therapy INR Values:1. Low Intensity Therapy 1.5 - 2.02 . Moderate Intensity Therapy 2.0 - 3.03. High Intensity Therapy(1) 2.5 - 3. 54. High Intensity Therapy(2) 3.0 - 4.05. Panic Value INR > 5.0 [facility] Center[facility] Partial Thromboplast Time 2018-07-15 18:42:00* Test Item Value Reference Range Interpretation Comments Activated Partial Thromboplast Time (test code = 97988-3) 34.3 23.8-35.5 [facility]
--- OUTSIDE RECORDS SUMMARY | 2020-06-25 18:23 | XMS REPORT | Clinical Summary ---
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 Active insulin glulisine Inject under 0 (APIDRA) 100 unit/mL the skin 3 injection (three) times a day before meals. Active amLODIPine (NORVASC) 5 mg Take 1 tablet 30 tablet 11 tablet (5 mg total) 9 by mouth daily. Active tacrolimus (PROGRAF) 1 MG Take 1 60 capsule 11 capsuleIndications: capsule (1 mg 9 Transplanted kidney total) by mouth 2 (two) times a day. 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 Active mycophenolate (CELLCEPT) Take 2 120 tablet 5 0 500 mg tabletIndications: tablets 0 prevention of kidney (1,000 mg transplant rejection total) by mouth 2 (two) times a day for 180 days .prevent kidney transplant rejection. Active predniSONE (DELTASONE) 5 Take 1 tablet 30 tablet 5 mg tabletIndications: (5 mg total) 0 prevention of kidney by mouth transplant rejection daily for 180 days .prevent kidney transplant rejection. 12/12/2019 metoprolol succinate XL Take 0.5 15 tablet 11 (TOPROL-XL) 25 mg 24 hr tablets (12.5 9 tablet mg total) by mouth daily. 12/17/2019 Discontinued (Reorder) mycophenolate (CELLCEPT) Take 2 120 tablet 11 0 500 mg tabletIndications: tablets 9 prevention of kidney (1,000 mg transplant rejection total) by mouth 2 (two) times a day. 12/17/2019 Discontinued (Reorder) predniSONE (DELTASONE) 5 Take 1 tablet 30 tablet 11 mg tabletIndications: (5 mg total) 9 prevention of kidney by mouth transplant rejection daily. 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 therapy) Active Problems Problem Noted Date Skin ulcer of right heel with fat layer exposed 11/2017 History of kidney transplant 11/20/2016 Immunosuppressive management encounter following toby ey transplant 11/20/2016 Kidney replaced by transplant 04/11/2016 Encounters Care Team Description Date Type Specialty Jayne Rangel, JENNA Med Refill 12/17/2019 Refill Transplant after 06/25/2019 Social History Date Tobacco Use Types Packs/Day Years Used Never Smoker Smokeless Tobacco: Never Used Drinks/Week oz/Week Comments Alcohol Use "Drink socially befo re Quiti drinking more than 10 years ago" No Sex Assigned at Date Recorded Not on file Industry Job Start Date Occupation Not on file Not on file Not on file Travel End Travel History Travel Start No recent travel history available. 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
== END 2020-06-25 17:10 | disposition home or self-care (01) ==
LOC: ER 16:45
DX: Z47.89 Encounter for other orthopedic aftercare (principal); I12.0 Hypertensive chronic kidney disease with stage 5 chronic kidney disease or end stage renal disease; E11.22 Type 2 diabetes mellitus with diabetic chronic kidney disease; N18.6 End stage renal disease; Z94.0 Kidney transplant status; Z95.1 Presence of aortocoronary bypass graft
CPT/HCPCS: 99282

== ENCOUNTER 2020-12-29 09:30 | Emergency (ER) | payer MEDICARE ==
[~2020-12-29] VITALS: Ht 365.8 cm; Wt 91.6 kg
[2020-12-29] MEDS ORDERED: SODIUM CHLORIDE 0.9% 1000ML 1,000 ML IV STA (09:40)
[2020-12-29] MEDS ORDERED: ONDANSETRON HCL INJ 2MG/ML 2ML 2 MG/ML VIAL IV PRN (09:45)
[2020-12-29 09:59] LABS: BASOPHILS % 0.5 % (0.0-1.0); EOSINOPHILS # (AUTO) 0.1 (0.0-0.4); EOSINOPHILS % 2.6 % (0.0-6.0); HEMATOCRIT 41.9 % (38.2-49.6); HEMOGLOBIN 13.9 g/dL (14.0-18.0); LYMPHOCYTES # (AUTO) 1.1 (1.0-3.2); LYMPHOCYTES % 19.4 % (18.0-39.1); MEAN CORPUSCULAR HEMOGLOBIN 31.6 pg (28-32); MEAN CORPUSCULAR HGB CONC 33.2 g/dL (31-35); MEAN CORPUSCULAR VOLUME 95.2 fL (81-99); MONOCYTES # (AUTO) 0.6 (0.2-0.8); MONOCYTES % 11.7 % (4.4-11.3); NEUTROPHILS # (AUTO) 3.6 (2.1-6.9); NEUTROPHILS % 65.6 % (38.7-80.0); PLATELET COUNT 122 x10e3/uL (140-360); RED CELL DISTRIBUTION WIDTH 13.4 % (11.7-14.4)
[2020-12-29 10:29] LABS: ALANINE AMINOTRANSFERASE 17 IU/L (0-55); ALBUMIN/GLOBULIN RATIO 1.4 (0.8-2.0); ALKALINE PHOSPHATASE 76 IU/L (40-150); ANION GAP 11.2 mmol/L (8-16); BLOOD UREA NITROGEN 20 mg/dL (7-26); BUN/CREATININE RATIO 19 (6-25); CALCIUM 9.2 mg/dL (8.4-10.2); CARBON DIOXIDE 22 mmol/L (22-29); CHLORIDE 111 mmol/L (98-107); CREATININE, SERUM 1.07 mg/dL (0.72-1.25); EST GLOMERULAR FILTRATION RATE > 60 ML/MIN (60-); GLUCOSE 149 mg/dL (74-118); LIPASE 20 U/L (8-78); POTASSIUM 4.2 mmol/L (3.5-5.1); SODIUM 140 mmol/L (136-145)
[2020-12-29 10:38] LABS: CLARITY,URINE CLEAR (CLEAR); COLOR,URINE YELLOW (YELLOW); LEUKOCYTE ESTERASE ,URINE NEGATIVE (NEGATIVE); NITRITE,URINE NEGATIVE (NEGATIVE); PROTEIN,URINE DIPSTICK NEGATIVE (NEGATIVE)
[2020-12-29 10:39] LABS: KETONES,URINE NEGATIVE (NEGATIVE); URINE UROBILINOGEN 0.2 mg/dL (0.2 - 1)
[2020-12-29 10:46] LABS: BACTERIA,URINE RARE /HPF; EPITHELIAL CELLS,URINE FEW /LPF; RBC,URINE 0-5 /HPF (0-5); WBC,URINE (MAN) 0-5 /HPF (0-5)
[2020-12-29 10:47] LABS: CALCIUM OXALATE CRYSTALS,UR MODERATE (FEW)
[2020-12-29] MEDS ORDERED: IOPAMIDOL 370 MG/ML 200 ML INFUS..BTL INJ ONE (11:29)
[2020-12-29] MEDS ORDERED: SODIUM CHLORIDE 0.9% 50ML 50 ML ONE (11:29)
== END 2020-12-29 14:05 | disposition home or self-care (01) ==
LOC: ER 09:45
DX: R10.31 Right lower quadrant pain (principal); I12.0 Hypertensive chronic kidney disease with stage 5 chronic kidney disease or end stage renal disease; E11.22 Type 2 diabetes mellitus with diabetic chronic kidney disease; N18.6 End stage renal disease; Z94.0 Kidney transplant status; Z95.1 Presence of aortocoronary bypass graft
CPT/HCPCS: 36415; 74177; 80053; 81001; 83690; 85025; 99284; J2405; J7030; Q9967